=== PATIENT | female | born 1970 | race Caucasian/White ===

== ENCOUNTER 2017-01-04 10:38 | Inpatient (IN) | payer BC ==
[2017-01-04] MEDS ORDERED: ACETAMINOPHEN 325 MG TAB PO ONE (11:21)
[2017-01-04] MEDS ORDERED: NS 1,000 ML IV ONE (12:12)
[2017-01-04 12:19] LABS: % IMMATURE GRANULYOCYTES 0.7 % (0.0-1.1); ABSOLUTE IMMATURE GRANULOCYTES 0.19 10^3/uL (0.00-0.10); ADD DIFF? NO; ADD MORPH? NO; ADD SCAN? NO; ATYPICAL LYMPHOCYTE FLAG 0 (0-99); FRAGMENT RBC FLAG 0 (0-99); HEMATOCRIT 49.9 % (38.0-47.0); HEMOGLOBIN 16.7 g/dL (12.6-16.3); LEFT SHIFT FLG 20 (0-99); LIPEMIA HEMOLYSIS FLAG 80 (0-99); MEAN CELL HEMOGLOBIN 29.6 pg (27.9-34.1); MEAN CELL HEMOGLOBIN CONCENTR. 33.5 g/dL (32.4-36.7); MEAN CELL VOLUME 88.3 fL (81.5-99.8); MEAN PLATELET VOLUME 10.4 fL (8.7-11.7); PLATELET CLUMPS FLAG 10 (0-99); PLATELET COUNT 297 10^3/uL (150-400); RED BLOOD CELL COUNT 5.65 10^6/uL (4.18-5.33)
[2017-01-04] MEDS ORDERED: VANCOMYCIN HCL/NORMAL SALINE 250 ML IV ONE (12:24)
--- NOTE | 2017-01-04 12:28 | EDPHY ---
H & P Time Seen by Provider: 01/04/17 12:14 HPI/ROS: CHIEF COMPLAINT: Fever, infected pain pump HISTORY OF PRESENT ILLNESS: The patient is a 45-year-old female with history of chronic pain requiring pain pump. She had a pain pump for 3 years but it became infected and was removed in 03/08. She continued to have pain in on she had a new pain pump placed by Dr. Lopez. Since that time she has had issues with it leaking cerebral spinal fluid. She has had 2 blood patches and is scheduled for another blood patch on Thursday. She states she has significant amount of drainage from the lumbar site. She is placing a tampon to collect fluid. She has had ongoing intermittent headaches. She describes photophobia since the pump was placed. This morning she had a temperature to 102 and presented to the emergency department. She states that her abdominal present were site is nontender and nonpainful. She denies nausea vomiting. No rash. No weakness or numbness. No neck stiffness. REVIEW OF SYSTEMS: My complete review of systems is negative except as mentioned in the HPI. Past Medical/Surgical History: Includes hypertension, diabetes, hip replacement, spinal stimulator and pain pump, bacterial meningitis Social History: Negative Smoking Status: Never smoked Physical Exam: Vitals noted GENERAL: No acute distress, alert. HEENT: Eyes normal to inspection, normal pharynx, no signs of dehydration. NECK: No thyromegaly, no lymphadenopathy, supple. No meningismus. RESPIRATORY: Clear to auscultation bilaterally, no rales, rhonchi or wheezing. CVS: Regular rate and rhythm, no rubs, murmurs, or gallops. ABDOMEN: Soft, nontender, nondistended, no organomegaly. Benign. Surgical incision site clean dry and intact. No surrounding discomfort. BACK: Normal to inspection, no CVA tenderness. Patient has a lumbar incision with dressing placed. This have clear discharge. No surrounding erythema. The wound is not dehisced. SKIN: Normal color, no rash, warm, dry. No pallor. EXTREMITIES: No pedal edema, no calf tenderness, no Homans sign or cords, no joint swelling. NEURO/PSYCH: Alert and oriented x3, normal mood and affect, normal motor sensory exam. No obvious cranial nerve deficit. Constitutional: Initial Vital Signs Temperature (C) 37.3 C 01/04/17 10:45 Heart Rate 133 H 01/04/17 10:45 Respiratory Rate 24 H 01/04/17 10:45 Blood Pressure 118/83 H 01/04/17 10:45 O2 Sat (%) 92 01/04/17 10:45 O2 Delivery Mode Room Air Allergies/Adverse Reactions: doxycycline Allergy (Verified 01/04/17 10:42) fentanyl Allergy (Verified 01/04/17 14:46) pregabalin [From Lyrica] Allergy (Verified 01/04/17 10:42) Home Medications: Medication Instructions Recorded Atorvastatin Calcium [Lipitor 40 40 mg PO HS 03/19/16 mg (*)] Canagliflozin [Invokana] 300 mg PO DAILY 03/19/16 Lisinopril/Hctz 20/12.5MG 1 ea PO DAILY 03/19/16 [Zestoretic/Prinzide 20/12.5MG (*)] Meloxicam [Mobic 15 mg] 15 mg PO HS 03/19/16 Ondansetron Odt [Zofran Odt 4 mg 4 mg PO HS 03/19/16 (*)] sitaGLIPtin PHOSPHATE [Januvia 100 100 mg PO DAILY 03/19/16 MG (*)] Methocarbamol [Robaxin 750 mg (*)] 750 mg PO QID PRN #60 tab 03/23/16 Acet/Caffeine/Buta Fioricet 1 each PO TID PRN 01/04/17 [Fioricet (*)] Cholecalciferol Vit D3 [Vitamin D3 2,000 units PO DAILY 01/04/17 2000 units tab (OTC)] Nortriptyline HCl [Pamelor 25 mg 25 mg PO HS 01/04/17 (*)] Pain Pump 1 ea IT CONT 01/04/17 Psyllium Husk (with Sugar) 1 each PO BID 01/04/17 [Metamucil Packet] Medical Decision Making - Diagnostics EKG Interpretation: Sinus tachycardia 117. Has nonspecific intraventricular conduction delay. Minimal ST depression. Imaging Results: Imaging Impressions Chest X-Ray 01/04/17 12:10 Impression: Hypoventilatory features with mild peribronchial thickening, but no focal alveolar consolidation. Lumbar Puncture 01/04/17 13:00 Impression: Fluoroscopy-guided lumbar puncture performed at L3-L4, yielding 16 mL of slightly yellowish, but translucent CSF. Sent for requested labs. ED Course/Re-evaluation: In the emergency department I discussed possible etiologies with the patient. I answered all her questions. When the patient arrived I was caring for a full trauma activation the required resuscitation and there was some delay in my initial evaluation. I paged numerous consultations to help with this patient's treatment plan and evaluation. I paged Dr. Lopez, Dr. Bar from Neurosurgery, interventional Radiology, general Radiology, Dr. Day and infectious disease. Laboratory studies, EKG, chest x-ray, blood cultures, wound swab of were sent. Patient's white count came back 1st and was noted to be markedly elevated at greater than 20,000. Because this patient was given Rocephin 1 g IV and vancomycin 1 g IV. Cultures are pending. I discussed the case with Dr. Lopez. He recommended consultation with Infectious Disease and Neurosurgery I discussed the case with Dr. Farah from neurosurgery. He recommended treatment for possible meningitis. He recommended Radiology for LP. I discussed case with Dr. bIarra from General Radiology. He recommended I page interventional Radiology. Dr. Ball was paged. I discussed the case with Dr. Ball. I discussed concern for fluid drainage from her pump site as well as the possibility of meningitis and sepsis. She will come to the emergency department to perform an LP. I discussed the case with Dr. Feldman from Infectious Disease. Specifically I discussed the patient's presentation with tachycardia, elevated white count and lactic acid of 2. Because of this I feel we could not delay in starting antibiotics although we do not have LP results. She agreed. Summarize the discussion with numerous consultations, the patient will be started on antibiotics at this time. Wound culture and blood cultures are pending. The patient will undergo interventional Radiology to obtain cerebral spinal fluid. Hospitalist service will admit the patient. Severe sepsis was declared. The patient was given normal saline 30 milliliters/ kilogram. Repeat lactic acid will be ordered. The patient is aware the plan. I answered all her questions. Rechecked the patient on numerous occasions. She was stable throughout her stay. Patient was taken to IR for LP. I discussed the need for repeat lactate with nursing. 1435: I discussed the plan with the patient and her friend. She returned from IR. She still has mild headache and back discomfort. She is given Dilaudid 0.5 mg IV. Patient informs me that she has an older spinal stimulator in place. This cannot tolerate MRI imaging. CT of the abdomen and pelvis with IV contrast was ordered. Differential Diagnosis: My differential includes but is not limited to bacteremia, sepsis, meningitis, pain pump infection, cellulitis, abscess, epidural abscess Critical Care Time: Patient required 40 minutes of critical care time. This was exclusive of any unbundled procedure. This was due to the time spent with the patient, answering questions, re-evaluation, numerous consultations with specialists including Infectious Disease, neuro surgery, interventional Radiology, radiology , and Internal Medicine. - Data Points Laboratory Results: Laboratory Results 01/04/17 11:00 01/04/17 11:00 01/04/17 01/04/17 01/04/17 13:00 12:20 11:00 WBC RBC Hgb Hct MCV MCH MCHC RDW Plt Count MPV Neut % (Auto) Lymph % (Auto) [place] % (Auto) Eos % (Auto) Baso % (Auto) Nucleat RBC Rel Count Absolute Neuts (auto) Absolute Lymphs (auto) Absolute Monos (auto) Absolute Eos (auto) Absolute Basos (auto) Absolute Nucleated RBC Immature Gran % Immature Gran # PT INR APTT VBG Lactic Acid 2.0 mmol/L mmol/L (0.7-2.1) Sodium 135 mEq/L mEq/L (134-144) Potassium 3.5 mEq/L mEq/L (3.5-5.2) Chloride 100 mEq/L mEq/L (97-110) Carbon Dioxide 20 mEq/l L mEq/l (22-31) Anion Gap 15 mEq/L mEq/L (8-16) BUN 22 mg/dL mg/dL (7-23) Creatinine 0.9 mg/dL mg/dL (0.6-1.0) Estimated GFR > 60 Glucose 145 mg/dL H mg/dL (70-100) Calcium 9.8 mg/dL mg/dL (8.5-10.4) Total Bilirubin 0.9 mg/dL mg/dL (0.1-1.4) Urine Color PALE YELLOW Urine Appearance CLEAR Urine pH 5.0 (5.0-7.5) Ur Specific [place] 1.014 (1.002-1.030) Urine Protein NEGATIVE (NEGATIVE) Urine Ketones NEGATIVE (NEGATIVE) Urine Blood NEGATIVE (NEGATIVE) Urine Nitrate NEGATIVE (NEGATIVE) Urine Bilirubin NEGATIVE (NEGATIVE) Urine Urobilinogen NEGATIVE EU EU (0.2-1.0) Ur Leukocyte Esterase NEGATIVE (NEGATIVE) Urine RBC 1-3 /hpf /hpf (0-3) Urine WBC 1-3 /hpf /hpf (0-3) Ur Epithelial Cells TRACE /lpf /lpf (NONE-1+) Urine Bacteria TRACE /hpf H /hpf (NONE SEEN) Urine Glucose 3+ H (NEGATIVE) 01/04/17 01/04/17 11:00 11:00 WBC 26.49 10^3/uL H 10^3/uL (3.80-9.50) RBC 5.65 10^6/uL H 10^6/uL (4.18-5.33) Hgb 16.7 g/dL H g/dL (12.6-16.3) Hct 49.9 % H % (38.0-47.0) MCV 88.3 fL fL (81.5-99.8) MCH 29.6 pg pg (27.9-34.1) MCHC 33.5 g/dL g/dL (32.4-36.7) RDW 14.0 % % (11.5-15.2) Plt Count 297 10^3/uL 10^3/uL (150-400) MPV 10.4 fL fL (8.7-11.7) Neut % (Auto) 88.8 % H % (39.3-74.2) Lymph % (Auto) 3.0 % L % (15.0-45.0) [place] % (Auto) 7.2 % % (4.5-13.0) Eos % (Auto) 0.0 % L % (0.6-7.6) Baso % (Auto) 0.3 % % (0.3-1.7) Nucleat RBC Rel Count 0.0 % % (0.0-0.2) Absolute Neuts (auto) 23.50 10^3/uL H 10^3/uL (1.70-6.50) Absolute Lymphs (auto) 0.80 10^3/uL L 10^3/uL (1.00-3.00) Absolute Monos (auto) 1.92 10^3/uL H 10^3/uL (0.30-0.80) Absolute Eos (auto) 0.01 10^3/uL L 10^3/uL (0.03-0.40) Absolute Basos (auto) 0.07 10^3/uL 10^3/uL (0.02-0.10) Absolute Nucleated RBC 0.00 10^3/uL 10^3/uL (0-0.01) Immature Gran % 0.7 % % (0.0-1.1) Immature Gran # 0.19 10^3/uL H 10^3/uL (0.00-0.10) PT 13.1 SEC SEC (12.0-15.0) INR 1.00 (0.83-1.16) APTT 29.1 SEC SEC (23.0-38.0) VBG Lactic Acid Sodium Potassium Chloride Carbon Dioxide Anion Gap BUN Creatinine Estimated GFR Glucose Calcium Total Bilirubin Urine Color Urine Appearance Urine pH Ur Specific [place] Urine Protein Urine Ketones Urine Blood Urine Nitrate Urine Bilirubin Urine Urobilinogen Ur Leukocyte Esterase Urine RBC Urine WBC Ur Epithelial Cells Urine Bacteria Urine Glucose Medications Given: Discontinued Medications Acetaminophen (Tylenol) 650 mg PO EDNOW ONE Stop: 01/04/17 11:22 Last Admin: 01/04/17 11:30 Dose: 650 mg Sodium Chloride (Ns) 1,000 mls @ 0 mls/hr IV ONCE ONE PRN Reason: Wide Open Stop: 01/04/17 12:13 Last Admin: 01/04/17 11:45 Dose: 1,000 mls Vancomycin/Sodium Chloride (Vancomycin 1 Gm (Premix)) 250 mls @ 250 mls/hr IV EDNOW ONE PRN Reason: Protocol Stop: 01/04/17 13:23 Last Admin: 01/04/17 12:46 Dose: 250 mls Sodium Chloride (Ns) 3,300 mls @ 6,600 mls/hr 30 ml/kg infuse over 30 min ( 3300 ml) IV EDNOW ONE Stop: 01/04/17 13:37 Last Admin: 01/04/17 13:15 Dose: 3,300 mls Departure - Departure Disposition: [facility] Inpatient Acute Clinical Impression: Leukocytosis, Possible meningitis, Severe sepsis Back pain Qualifiers: Back pain location: low back pain Chronicity: acute Back pain laterality: midline Sciatica presence: without sciatica Qualified Code(s): M54.5 - Low back pain Fever Qualifiers: Fever type: due to other condition Qualified Code(s): R50.81 - Fever presenting with conditions classified elsewhere Condition: Good
[2017-01-04 12:30] LABS: APTT 29.1 SEC (23.0-38.0); PROTIME(PATIENT) 13.1 SEC (12.0-15.0)
--- NOTE | 2017-01-04 12:35 | CPEKG ---
Heart Rate: 117 RR Interval: 513 P-R Interval: 152 QRSD Interval: 120 QT Interval: 294 QTC Interval: 410 P Shiner: 51 QRS Shiner: 86 EKG Severity - ABNORMAL ECG - EKG Impression: SINUS TACHYCARDIA EKG Impression: NONSPECIFIC INTRAVENTRICULAR CONDUCTION DELAY EKG Impression: MINIMAL ST DEPRESSION, INFERIOR LEADS Electronically Signed By: Zahraa Henson 04-Jan-2017 15:22:39
[2017-01-04 12:47] LABS: ANION GAP 15 mEq/L (8-16); BILIRUBIN,TOTAL 0.9 mg/dL (0.1-1.4); CALCIUM 9.8 mg/dL (8.5-10.4); CARBON DIOXIDE 20 mEq/l (22-31); CHLORIDE 100 mEq/L (97-110); CREATININE 0.9 mg/dL (0.6-1.0); GLOMERULAR FILTRATION RATE > 60; GLUCOSE 145 mg/dL (70-100); POTASSIUM 3.5 mEq/L (3.5-5.2); SODIUM 135 mEq/L (134-144)
[2017-01-04] MEDS ORDERED: NS 3,300 ML IV ONE (13:08)
[2017-01-04 13:23] LABS: COLOR PALE YELLOW; LEUKOCYTE ESTERASE,URINE NEGATIVE (NEGATIVE); NITRITE,URINE NEGATIVE (NEGATIVE)
[2017-01-04] MEDS ORDERED: NA BICARBONATE 50 MEQ/50 ML VIAL ONE (13:34)
[2017-01-04] MEDS ORDERED: LIDOCAINE 1% 5 ML SDV ONE (13:34)
[2017-01-04] MEDS ORDERED: LIDOCAINE 1% 30 ML SDV ONE (13:35)
[2017-01-04 13:48] LABS: BACTERIA TRACE /hpf (NONE SEEN)
[2017-01-04] MEDS ORDERED: HYDROmorphONE/DILAUDID 1 MG/ML SYR IVP PRN ×2 (13:51→14:40)
[2017-01-04] MEDS ORDERED: NS 1,000 ML IV SCH (14:00)
[2017-01-04] MEDS ORDERED: IOPAMIDOL (ISOVUE-300) 100 ML BTL ONE (14:45)
[2017-01-04] MEDS ORDERED: HYDROmorphONE/DILAUDID 1 MG/ML SYR ONE (14:47)
[2017-01-04 15:27] LABS: PROTEIN, CSF 47 mg/dL (12-60)
[2017-01-04 15:49] LABS: CSF APPEARANCE CLEAR (CLEAR); CSF COLOR COLORLESS (COLORLESS); CSF SUPERNATANT COLORLESS (COLORLESS); WBC, CSF 350 /mm3 (0-5)
--- NOTE | 2017-01-04 17:15 | PDGENHP ---
History and Physical History and Physical: Chief complaint: Fever History of present illness: The patient is a 46-year-old female with a past medical history of lumbar spine pain pump, chronic back pain who presented with fever today. She complains of leaking CSF from the pain pump since it was placed about [address] Lopez, who had attempted 2 blood patches to stop leaking, but was unsuccessful. Prior to placement of current pain pump, she had another pain pump which got infected and had been surgically removed at [facility] in February 2016. Other associated symptoms include fatigue, positional lightheadedness, headache w/ photophobia, back pain which is sharp and radiates down left leg sometimes. Patient denies numbness or tingling or paresthesias. She denies incontinence of bladder and bowel. Symptoms are better when she lies supine. Symptoms are worse when she stands or walks. Past medical history: Diabetes mellitus-on oral medications Chronic back pain, s/p pain pump Hypertension Hyperlipidemia Past surgical history: Spinal pain pump placed 2016 (replacement) - in R abdomen Spinal pain pump placed in 2012 Spinal nerve stimulator placed 2009 L SHANDA Medications: Please see medication reconciliation form Allergies: Doxycycline, fentanyl, pregabalin. Social history: and lives with . She does not smoke drink or do drugs. She is disabled. They moved here from [place] a few years ago. Family history: Her father had diabetes and high blood pressure. Review of systems: 10 point review of systems was conducted and is negative except per HPI Physical exam: General: The patient is an obese, middle-aged female who is alert and in no acute distress. HEENT: normocephalic, extraocular movements intact, conjunctivae clear, no lesions on face. Mucous membranes moist. Neck: trachea midline, no visible masses, no external lesions. CV: +S1/S2, RRR, no MRG. Resp: unlabored, CTAB no RRW. Abd: soft and nondistended. Nontender throughout. Musculoskeletal: Normal muscle tone and bulk. Equal 5/5 strength bilateral hands and feet. Neuro: cranial nerves II XII grossly intact. Intact gross motor and sensory function, symmetric in upper and lower extremities. Psych: appropriate mood/affect. Skin: No pallor. Dressing on low back C/D/I. Heme/lymph: No peripheral edema. Vitals: Reviewed Labs: White blood cell 26.5, hemoglobin 16.7, platelets 297. Sodium 135 potassium 3.5 chloride 100 CO2 20 anion gap 15 BUN 22 creatinine 0.9 glucose 145 calcium 9.8 bilirubin 0.9 INR 1.0 lactic acid 1.7. Urinalysis +3 glucose. Other Data: CT abd/pelv w/ contrast: nodular asymmetry posterior inferior lateral L breast. Hepatomegaly w/ diffuse steatosis. Dorsal epidural neurostimulator. Presumed seroma associated with a portion of the implant device along the lateral right abdominal wall. Status post Ursula type left hip arthroplasty. There is a 3.4 cm simple appearing left ovarian cyst. Impression and plan: Sepsis Suspected meningitis and abscess a/w infected pain pump Chronic pain Diabetes mellitus type 2 Hyperlipidemia Hypertension Obesity Hepatosteatosis L breast nodule -ID consulted - recs appreciated - IV Abx. -NSG consulted - recs appreciated - to stop CSF leaking and possibly to remove infected pain pump. -LP done today - FU fluid studies -IV fluids. -Continue home meds. -Noted abnormal nodular focus in L breast on CT scan, notified patient. She admits she has never had a mammogram. Recommended outpatient workup after dealing w/ pain pump during this hospitalization. -VTE ppx - Lovenox. -Code status - Full. Discussed case with RN, patient and her , and infectious disease specialist.
[2017-01-04] MEDS: CEFEPIME HCL 2 GM in D5W 100 ML IV SCH ×2 (17:55→21:27)
[2017-01-04] MEDS ORDERED: GUAIFENESIN/DM 10 ML UDCUP PO PRN (18:08)
[2017-01-04] MEDS: ONDANSETRON 4 MG/2 ML VIAL IVP PRN (18:45)
[2017-01-04] MEDS: ACETAMINOPHEN 325 MG TAB PO PRN (19:43)
[2017-01-04] MEDS ORDERED: Meloxicam [Mobic 15 Mg] 15 MG PO SCH (21:00)
[2017-01-04] MEDS: NORTRIPTYLINE HCL 25 MG CAP PO SCH (21:26)
[2017-01-04] MEDS: PSYLLIUM METAMUCIL 1 PKT PO SCH (21:26)
[2017-01-04] MEDS: ATORVASTATIN CALCIUM 40 MG TAB PO SCH (21:26)
[2017-01-04] MEDS: ONDANSETRON DISINTEGRATING 4 MG TAB PO PRN (22:31)
[2017-01-04] MEDS: VANCOMYCIN 1.5 GM in D5W 250 ML IV SCH (22:31)
--- NOTE | 2017-01-04 22:57 | GCON ---
[f rep st] CONSULTATION INFECTIOUS DISEASE CONSULTATION DATE OF CONSULTATION: 01/04/2017 REFERRING PHYSICIAN: Joanna Lopez DO REASON FOR CONSULTATION: Fever, CSF leak for further evaluation. CHIEF COMPLAINT: Fevers and headaches. HISTORY OF PRESENT ILLNESS: This is a 46-year-old female with a past medical history sign ificant for chronic low back pain status post an epidural neurostimulator, diabetes, hypertension, d yslipidemia. She has had a neurostimulator pain pump for many years. 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 T he catheter and reservoir were removed at that time, and she was treated with a course of ceftriaxon e for 2 weeks from the end of February till April 03 per the record. She recently had the neurostimu lator replaced on December 08, 2016. She said shortly after its placement, she started to have headach es and low back pain. She states that it was low-grade for the first 2 weeks, and then it became mo re severe over the next 2-3 weeks. She has had CSF leak from her lower back wound for the past 2 we eks status post 2 blood patches, which have been unsuccessful and . Now, she has been ng ving fevers, increasing headaches with photophobia. She denies any neck stiffness. She states over all her symptoms are much less severe than her February 2015 episode. She came in. She has been tachyc ardic and febrile to 38.4. She had a white blood cell count noted to be 26,000 with a left shift. Blood cultures in 2 sets were drawn. She was given a dose of vancomycin in the ER, and then subsequ ently set up for an LP. The LP CSF showed 350 WBCs, 85 RBCs, 95% neutrophils with a normal glucose and protein in the CSF. So far, polys are present, but no organisms on the Gram stain. She also un derwent a CAT scan of the abdomen, which showed a presumed seroma associated with the dorsal epidura l nerve stimulator. I reviewed the images personally with Radiology today, which shows that collect ion around the reservoir, as well as some tracking from the neurostimulator in the lower lumbar spin e tracking out to the skin. Does not appear to have a focal collection there though. She is now in the intensive care unit. Infectious Disease is now consulted for further evaluation and opinion re brissa above. REVIEW OF SYSTEMS: GENERAL: Had fevers. No significant chills. HEAD: Has had headaches. EYES: No change in vision, but definitely is having photophobia. ENT: No sore throat, difficulty swallo wing, ear pain or ear drainage. NECK: No neck stiffness. CARDIOVASCULAR: Denies any chest pain o r palpitations. RESPIRATORY: Denies any shortness of breath, cough, or sputum production. ABDOMEN : No nausea, vomiting, abdominal pain, or diarrhea. She does feel a bit bloated. : No dysuria, hematuria. Does have low back pain. MUSCULOSKELETAL: Denies any joint pains or muscle aches. SK IN: No other rashes. NEURO: Denies any numbness or tingling down the lower extremities. The rest of the 10-point review of systems essentially negative except as above. PAST MEDICAL HISTORY: Significant for dyslipidemia, hypertension, diabetes mellitus, chronic low ba ck pain status post an epidural neurostimulator, previous neurostimulator infection with group B str ep with meningitis back in February 2016, status post removal of the catheter and reservoir at that time . PAST SURGICAL HISTORY: Significant for initial epidural neurostimulator placement in 2012, which wa s subsequently removed in February 2016 and replaced November 2016, left total hip replacement. ALLERGIES: She has doxycycline with a mild rash without shortness of breath without swelling, fenta nyl, pregabalin. MEDICATIONS: See OCT. SOCIAL HISTORY: She lives with her . She does not smoke or drink alcohol. No illicit drugs . FAMILY HISTORY: Father had diabetes and high blood pressure and of pancreatic cancer. PHYSICAL EXAMINATION: VITAL SIGNS: Temperature 37.3, heart rate 112, blood pressure 104/69, satura tions are 95% on 2 L O2 via nasal cannula, respiratory rate is 18. GENERAL: Patient is in the inte nsive care unit lying down flat. There is photophobia. Awake and alert and oriented x3. HEENT: H ead normocephalic, atraumatic. Eyes, pupils equal, round, react to light. There is no conjunctival petechiae noted. She does have photophobia. Oropharynx is clear. There is no posterior erythema or thrush. NECK: Not examined as she just recently had a lumbar puncture. CARDIOVASCULAR: S1, S2 . Irregular rhythm. She is tachycardic. RESPIRATORY: Clear to auscultate bilaterally. No rhonch i appreciated. ABDOMEN: Positive bowel sounds in all quadrants. Soft, nontender, nondistended. N o obvious organomegaly appreciated. No pain on the reservoir pump in the abdomen. EXTREMITIES: No obvious joint effusions. No muscle aches or pain on palpation. No lower extremity edema. SKIN: Pertinent finding, she has a lower lumbar back wound, which has opened up in a linear fashion. Mini mal slough overlying it with CSF drainage coming out of it. There is no surrounding erythema noted. LABS: White blood cell count is 26.4, hemoglobin 16.7, platelets are 297, neutrophil count is 88%. INR is 1. Venous lactic acid is 2. Sodium 135, potassium 3.5, chloride 100, bicarb 20, BUN is 22, creatinine 0.9. Glucose 140. Urinalysis negative nitrite, negative leuk esterase, urine WBCs 1-3. CSF WBCs 350, CSF RBCs 85, CSF neutrophils 95%, CSF glucose 73, CSF total protein 47. Microbiolog y: CSF Gram stain with polys and mononuclear cells, no organisms seen. Culture is pending. Blood cultures are pending. Urine culture pending. IMAGING: Have all been reviewed by me and are stated above. She had a chest x-ray done, which show ed hypoventilatory changes, but no consolidation. ASSESSMENT: 1. Sepsis. 2. Likely infected pain pump with meningitis. PLAN: Will start vancomycin and cefepime empirically while cultures are in progress. Blood culture s have been collected and are pending. CSF cultures are also pending. Reviewed imaging results wit h Radiology today. She does have a small collection near her reservoir in the abdomen. Depending o n what her cultures show, will see if samples need to be collected from this. If her CSF is positiv e, she will likely need removal of her catheter and reservoir to help with management of an infectio n. The above plan was explained to the patient. Care was coordinated with the ER earlier today, as well as the hospitalist team in the ICU. Thank you very much for the opportunity to care for your patient in consultation. /[id number]/MODL
[2017-01-05] MEDS: Meloxicam [Mobic] 15 MG PO SCH ×2 (01:40→21:56)
[2017-01-05 05:36] LABS: % IMMATURE GRANULYOCYTES 0.8 % (0.0-1.1); ABSOLUTE IMMATURE GRANULOCYTES 0.15 10^3/uL (0.00-0.10); ADD DIFF? NO; ADD MORPH? NO; ADD SCAN? NO; ATYPICAL LYMPHOCYTE FLAG 0 (0-99); FRAGMENT RBC FLAG 0 (0-99); HEMATOCRIT 35.2 % (38.0-47.0); HEMOGLOBIN 11.6 g/dL (12.6-16.3); LEFT SHIFT FLG 30 (0-99); LIPEMIA HEMOLYSIS FLAG 80 (0-99); MEAN CELL HEMOGLOBIN 29.8 pg (27.9-34.1); MEAN CELL VOLUME 90.5 fL (81.5-99.8); MEAN PLATELET VOLUME 9.8 fL (8.7-11.7); PLATELET CLUMPS FLAG 0 (0-99); PLATELET COUNT 185 10^3/uL (150-400); RED BLOOD CELL COUNT 3.89 10^6/uL (4.18-5.33); RED CELL DISTRIBUTION WIDTH 14.2 % (11.5-15.2)
[2017-01-05 05:48] LABS: ANION GAP 8 mEq/L (8-16); CALCIUM 7.8 mg/dL (8.5-10.4); CARBON DIOXIDE 22 mEq/l (22-31); CHLORIDE 107 mEq/L (97-110); CREATININE 0.7 mg/dL (0.6-1.0); GLOMERULAR FILTRATION RATE > 60; GLUCOSE 91 mg/dL (70-100); MAGNESIUM 1.8 mg/dL (1.6-2.3); SODIUM 137 mEq/L (134-144)
[2017-01-05] MEDS: CEFEPIME HCL 2 GM in D5W 100 ML IV SCH ×3 (05:52→21:57)
[2017-01-05] MEDS: ACETAMINOPHEN 325 MG TAB PO PRN ×2 (08:06→14:53)
[2017-01-05] MEDS: LISINOPRIL/HCTZ 20/12.5MG 1 EA TAB PO SCH (08:07)
[2017-01-05] MEDS: PSYLLIUM METAMUCIL 1 PKT PO SCH ×2 (08:09→21:56)
[2017-01-05] MEDS: CHOLECALCIFEROL VIT D3 2,000 UNITS TAB/CAP PO SCH (08:09)
[2017-01-05] MEDS ORDERED: POTASSIUM Cl (KCl) 100 ML IV SCH (08:30)
--- NOTE | 2017-01-05 08:45 | HOSPPROG ---
Hospitalist Progress Note Assessment/Plan: #Sepsis: 2/2 #Meningitis and infected neurostimulator -empiric Vanc/Cefepime. Appreciate ID consultation. Awaiting CSF and blood cultures -NSGY to evaluate for CSF leak #Leukocytosis: trending down. Due to above #Controlled DM: Januvia #Normocytic anemia: no acute blood loss #Benign HTN: cont home meds #HLD: statin #Left breast lump: mammogram as outpatient #Headache: due to leak. She states caffeine helpful #Hypokalemia: replete #Diet: diabetic #DVT ppx: ambulatory Subjective: mild CARR[place]CO now Objective: Vital Signs Temp Pulse Resp BP Pulse Ox 36.8 C 85 13 116/68 100 01/05/17 07:14 01/05/17 07:14 01/05/17 07:14 01/05/17 07:14 01/05/17 07:14 Microbiology 01/04/17 14:20 Gram Stain - Final Cerebral Spinal Fluid Laboratory Results 01/05/17 05:00 01/05/17 05:00 01/04/17 01/05/17 01/06/17 05:59 05:59 05:59 Intake Total 5585 Output Total 4150 550 Balance 1435 -550 PT 13.1 SEC (12.0-15.0) 01/04/17 11:00 INR 1.00 (0.83-1.16) 01/04/17 11:00 - Physical Exam Constitutional: no apparent distress, obese Eyes: PERRL Ears, Nose, Mouth, Throat: moist mucous membranes, hearing normal Cardiovascular: regular rate and rhythym, no murmur, rub, or gallop Respiratory: no respiratory distress, no rales or rhonchi Gastrointestinal: normoactive bowel sounds, soft, non-tender abdomen, other ( palpable resovoir RLQ, no TTP or redness.) Genitourinary: no bladder fullness, no bladder tenderness Musculoskeletal: full muscle strength, other (spinal incision small fistula. Gauze saturated with CSF fluid) Neurologic: AAOx3, CN II-XII Intact Psychiatric: interacting appropriately ICD10 Worksheet Patient Problems: Problems Problem Status Onset Back pain Acute Fever Acute Leukocytosis Acute Severe sepsis Acute Fever Acute Headache Acute
[2017-01-05] MEDS ORDERED: Canagliflozin [Invokana] 300 MG PO SCH (09:00)
[2017-01-05] MEDS ORDERED: ENOXAPARIN 40 MG/0.4 ML SYR SC SCH (09:00)
[2017-01-05] MEDS ORDERED: POTASSIUM CL 20 MEQ TAB PO ONE (09:44)
[2017-01-05] MEDS: VANCOMYCIN 1.5 GM in D5W 250 ML IV SCH ×2 (10:02→23:11)
--- NOTE | 2017-01-05 10:10 | WOCRNPDOC ---
WOMARIAMN Advanced Assessment Note - Skin Integrity Problem, Advanced Assess Lower Back Dressing Type: Gauze, Tegaderm Film Dressing Description: Intact, Saturated Exudate Color: Clear, Yellow Integumentary Issue Intervention: Visualized Under Dressing Janett Wound Tissue: Erythema Janett Wound Swelling: None Wound Bed Color: Red, Yellow Wound Bed Constitution: Granulation Tissue, Smooth Tissue, Tunneling (Proximal wound tunnels at least 1 cm around 10 oclock. Did not feel comfortable probing past that point), Adhered Slough Wound Edges: Not Attached, Well Defined Site Odor: Moderate, Musky Site Measurement - Head-to-Toe Length X Width X Depth (cm): 3x0.5x0.6 Skin Integrity Problem Comment: Area assessed while patient was sitting at the bedside. Wound has a superior and inferior opening, the inferior being the larger of the two. The superior wound bed is not discrete and extends ventrally. The inferior wound does not and a firm wound bed is palpable. Report given to RN Narda. Due to location of wound and unknown depth a surgical consultation is requested. Wound care will check in again 01/08.
--- NOTE | 2017-01-05 11:44 | GCON ---
[f rep st] CONSULTATION NEUROSURGICAL CONSULTATION CHIEF COMPLAINT: Incisional leakage. 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 Approximately 1 month ago she had an intrathecal pump placed by Dr. Lopez. She had noticed some positional heada ches postoperatively and she had 2 attempts at a blood patch that were unsuccessful. She presented to [facility] on 01/04/2017 with fevers and leakage from her incision. This include d fatigue, lightheadedness, photophobia and back pain. A lumbar puncture was obtained which showed 380 white blood cells in the spinal fluid. She was started on antibiotics and an infectious disease consultation was obtained. A neurosurgical consultation was also requested. She currently complai ns of ongoing low back pain and pain in her left leg. She notices that her headaches are worse if s he sits up or tries to stand. She has had some lightheadedness, fevers, and fatigue. PAST MEDICAL HISTORY: 1. Diabetes mellitus. 2. Chronic pain. 3. Hypertension. 4. Hyperlipidemia. MEDICATIONS: Prior to admission are Fioricet, Zofran, Lipitor, Invokana, vitamin D, lisinopril, hyd rochlorothiazide, meloxicam, Robaxin, nortriptyline, psyllium husk, and Januvia. ALLERGIES: Doxycycline, fentanyl, and Lyrica. FAMILY HISTORY: Patient has no family history of infected pain pumps. SOCIAL HISTORY: Patient is with a grown son. She denies smoking, drinking, or drug use. REVIEW OF SYSTEMS: Negative. PHYSICAL EXAM: GENERAL: Patient is a 46-year-old female lying in bed, in a mild amount of distress . HEAD, EYES, EARS, NOSE, AND THROAT: Negative for drainage. EXTREMITIES: [place], warm, and dry. NEUROLOGICAL: Patient is awake, alert, oriented x4. Pupils equal, round, reactive to light. Extra ocular motions are intact. There is no evidence of facial droop. Tongue and uvula are midline. Sp inal accessory muscles are intact. Her motor strength is 5/5 in all muscle groups of her upper and lower extremities bilaterally. Sensation is grossly intact to light touch with both upper and lower extremities bilaterally. Deep tendon reflexes are 1+ out of 4 in the bilateral biceps, triceps, br achioradialis, patellar, and Achilles. There is a negative Lanie's with no clonus. Her lumbar i ncision shows some separation with drainage of clear fluid. There is mild erythema. LABORATORY DATA: Recent white blood cell count on admission was 26.4; today it is 18.85. CSF sampl e on 01/04/2017 shows a white blood cell count of 350, red blood cell count of 85, 95 neutrophils, 7 3 glucose, and protein of 47. IMPRESSION: This is a 46-year-old female who is approximately 1 month out from intrathecal pain pum p placement by Dr. Lopez. She is readmitted with leakage of clear fluid from her incision and sympt oms consistent with meningitis. PLAN: All the above were discussed in detail with the patient. This patient was seen and examined by Dr. Eleuterio Moran in ICU room 241. At this point in time, we would like her to continue with the IV antibiotics and she is currently on vancomycin and Rocephin. Her spinal CSF cultures are still pen ding; however, she would likely require removal of her intrathecal pain pump followed by completion of her course of IV antibiotics. Upon completion of her IV antibiotics, then she could consider rep lacement of her pain pump, if warranted. At this point in time, we will make her n.p.o. after dandy pruitt for consideration of removal of her intrathecal pain pump tomorrow by Dr. Hobbs. /[id number]/MODL
--- NOTE | 2017-01-05 15:34 | PCMIDPN ---
Assessment/Plan: Assessment/Plan: * Meningitis with CSF leak status post intrathecal pain pump placement: CSF cultures no growth to date but has significant pleocytosis consistent with meningitis. Agree with plans for intrathecal pain pump removal and closure of CSF leak if feasible. Continue empiric vancomycin and cefepime. Findings and plan reviewed with neurosurgical team. 01/05/17 15:30 Subjective: Patient with persistent positional headache and leakage of clear fluid from back incision. Objective: Vital Signs Temp Pulse Resp BP Pulse Ox 36.8 C 88 14 107/64 90 L 01/05/17 11:52 01/05/17 11:52 01/05/17 11:52 01/05/17 11:52 01/05/17 09:25 Microbiology 01/05/17 05:00 Gram Stain - Final Back - Eswab 01/04/17 14:20 Gram Stain - Final Cerebral Spinal Fluid Laboratory Results 01/05/17 05:00 01/05/17 05:00 01/04/17 01/05/17 01/06/17 05:59 05:59 05:59 Intake Total 5585 Output Total 4150 550 Balance 1435 -550 Vancomycin # 2 Cefepime # 1 CSF cultures no growth to date Blood cultures x2 no growth Laboratory Tests 01/04/17 14:20 CSF WBC 350 H CSF RBC 85 H CSF Neutrophils % 95 H CSF Glucose 73 CSF Total Protein 47 - Physical Exam General Appearance: alert, no apparent distress EENT: No scleral icterus, No conjunctival petechiae Respiratory: lungs clear, No respiratory distress Neck: No meningismus Cardiac/Chest: regular rate, rhythm Abdomen: non-tender, other ( well-healed incision along right lower quadrant) Back: other ( approximately 1 cm open area in mid incision with drainage of clear fluid consistent with CSF) ICD10 Worksheet Patient Problems: Problems Problem Status Onset Back pain Acute Fever Acute Leukocytosis Acute Severe sepsis Acute Fever Acute Headache Acute
[2017-01-05] MEDS ORDERED: NS W/ 20 KCl/L 1,000 ML IV SCH (18:15)
[2017-01-05] MEDS: NORTRIPTYLINE HCL 25 MG CAP PO SCH (21:55)
[2017-01-05] MEDS: ATORVASTATIN CALCIUM 40 MG TAB PO SCH (21:55)
[2017-01-05] MEDS ORDERED: MAGNESIUM HYDROXIDE 30 ML UDCUP PO PRN (22:13)
[2017-01-05] MEDS ORDERED: POLYETHYLENE GLYCOL 3350 17 GM PKT PO PRN (22:13)
[2017-01-05] MEDS ORDERED: BISACODYL 10 MG SUPP PR PRN (22:13)
[2017-01-05] MEDS ORDERED: LACTULOSE 20 GM/30 ML UDCUP PO PRN (22:13)
[2017-01-05] MEDS: OXYCODONE/APAP 5/325 TAB PO PRN (22:27)
[2017-01-05] MEDS: SENNOSIDES/DOCUSATE SODIUM TAB PO SCH (22:32)
[2017-01-06] MEDS ORDERED: POTASSIUM Cl (KCl) 40 MEQ in NS 1,000 ML IV SCH
[2017-01-06] MEDS: NS W/ 20 KCl/L 1,000 ML IV SCH (02:36)
[2017-01-06] MEDS: ACETAMINOPHEN 325 MG TAB PO PRN (04:13)
[2017-01-06] MEDS: CEFEPIME HCL 2 GM in D5W 100 ML IV SCH (05:28)
[2017-01-06 06:27] LABS: HEMATOCRIT 42.7 % (38.0-47.0); MEAN CELL HEMOGLOBIN 29.1 pg (27.9-34.1); MEAN CELL HEMOGLOBIN CONCENTR. 32.8 g/dL (32.4-36.7); MEAN CELL VOLUME 88.8 fL (81.5-99.8); RED BLOOD CELL COUNT 4.81 10^6/uL (4.18-5.33)
[2017-01-06] MEDS ORDERED: BUPIVACAINE/EPI 0.25% 30 ML SDV ONE ×2 (06:43→09:24)
[2017-01-06] MEDS ORDERED: BACITRACIN 50,000 UNITS/10 ML SYR IRR ONE ×4 (06:44→13:54)
[2017-01-06] MEDS ORDERED: LIDOCAINE 1% 2 ML INJ ONE (07:04)
[2017-01-06 07:13] LABS: ANION GAP 12 mEq/L (8-16); CALCIUM 9.1 mg/dL (8.5-10.4); CARBON DIOXIDE 23 mEq/l (22-31); CHLORIDE 104 mEq/L (97-110); CREATININE 0.8 mg/dL (0.6-1.0); GLOMERULAR FILTRATION RATE > 60; GLUCOSE 112 mg/dL (70-100); POTASSIUM 3.8 mEq/L (3.5-5.2); SODIUM 139 mEq/L (134-144)
[2017-01-06] MEDS ORDERED: MIDAZOLAM 2 MG/2 ML VIAL ONE (07:14)
[2017-01-06] MEDS ORDERED: fentaNYL 100 MCG/2 ML INJ ONE ×4 (07:21→16:06)
[2017-01-06] MEDS ORDERED: REMIFENTANIL HCL 1 MG VIAL ONE ×2 (07:21→13:36)
[2017-01-06] MEDS ORDERED: PROPOFOL/EMULSION 500 MG/50 ML BOTTLE IV ONE ×2 (07:21→13:36)
[2017-01-06] MEDS ORDERED: ONDANSETRON 4 MG/2 ML VIAL ONE (07:24)
[2017-01-06] MEDS ORDERED: DEXAMETHASONE 4 MG/ML VIAL ONE ×2 (07:24→12:09)
--- NOTE | 2017-01-06 08:31 | PCMIDPN ---
Assessment/Plan: Assessment/Plan: 1. 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 Was only given Vanco in ER prior to LP. -will d/c cefepime, vanco and change to Nafcillin for directive therapy for above -For removal of pain pump/reservoir today which will help fascilitate response to therapy. -Will need at least 2 weeks therapy from time of removal of device barring any new issues. -check baseline LFT today prior to first dose of Nafcillin. Creatinine 0.8. -back wound cx with no organism on GS, blood cx ngtd - WBC elevated but fluctuating. -Recheck labs in am. -plan of care reviewed in detail with patient, at bedside. MEds vanco 01/04-01/06 cefepime 01/04-01/06 Subjective: Remains in SDU. TEmps improved. Headache better. Still with photophobia. Today with more back pain. denies n/t of lower extremities. Denies sob, abd pain. slightly constipated. Continues to drain out copious material through back wound. Objective: Vital Signs Temp Pulse Resp BP Pulse Ox 36.8 C 88 16 122/63 H 100 01/06/17 04:00 01/06/17 04:00 01/06/17 04:00 01/06/17 04:00 01/06/17 04:00 Microbiology 01/04/17 14:20 Gram Stain - Final Cerebral Spinal Fluid 01/05/17 05:00 Gram Stain - Final Back - Eswab Laboratory Results 01/06/17 06:17 01/06/17 06:17 01/05/17 01/06/17 01/07/17 05:59 05:59 05:59 Intake Total 5585 1752 Output Total 8570 7340 Balance 1435 -2998 - Physical Exam General Appearance: alert, no apparent distress EENT: other (no conjunctival injection. ) Respiratory: lungs clear Cardiac/Chest: regular rate, rhythm Extremities: No swelling Abdomen: normal bowel sounds, non-tender, soft, No distended Back: other (back wound: copious serous drainage. minimal slough within wound. ) Skin: No erythema ICD10 Worksheet Patient Problems: Problems Problem Status Onset Back pain Acute Fever Acute Leukocytosis Acute Severe sepsis Acute Fever Acute Headache Acute
[2017-01-06] MEDS ORDERED: ALTEPLASE 2 MG VIAL IVP PRN (08:45)
[2017-01-06] MEDS ORDERED: Canagliflozin [Invokana] 300 MG PO SCH (09:00)
[2017-01-06] MEDS: NAFCILLIN SODIUM 2 GM in D5W 100 ML IV SCH ×3 (10:08→21:08)
[2017-01-06 10:44] LABS: BILIRUBIN,TOTAL 0.7 mg/dL (0.1-1.4); BILIRUBIN-CONJUGATED 0.5 mg/dL (0.0-0.5); BILIRUBIN-UNCONJUGATED 0.2 mg/dL (0.0-1.1); TOTAL PROTEIN 5.7 g/dL (6.3-8.2)
--- NOTE | 2017-01-06 10:54 | HOSPPROG ---
Hospitalist Progress Note Assessment/Plan: #Sepsis: 2/ #MSSA Meningitis and infected neurostimulator -empiric Vanc/Cefepime. Change to Nafcillin for 2 weeks from pump removal. Check LFTs -NSGY removed pump today. Must lay flat, no Trendelburg for 5 days. #Leukocytosis: due to above. #Acute on chronic back pain: her pain doc, Dr. Lopez, was contacted and rec PO dilaudid and Klonopin. PRN IV dilaudid for breakthrough -I discussed with pt about other treatments for neuropathic pain: she has had severe reactions to Lyrica and Gabapentin #Controlled DM: Januvia #Normocytic anemia: no acute blood loss #Benign HTN: cont home meds #HLD: statin #Left breast lump: mammogram as outpatient #Headache: due to leak. She states caffeine helpful #Hypokalemia: replete #Diet: diabetic #DVT ppx: ambulatory Subjective: intrathecal pain pump removed. Severe pain after procedure Objective: Vital Signs Temp Pulse Resp BP Pulse Ox 36.8 C 88 16 122/63 H 100 01/06/17 04:00 01/06/17 04:00 01/06/17 04:00 01/06/17 04:00 01/06/17 04:00 Microbiology 01/05/17 05:00 Gram Stain - Final Back - Eswab 01/04/17 14:20 Gram Stain - Final Cerebral Spinal Fluid Laboratory Results 01/06/17 06:17 01/06/17 06:17 01/05/17 01/06/17 01/07/17 05:59 05:59 05:59 Intake Total 5585 1752 Output Total 4150 4750 Balance 1435 -2998 PT 13.1 SEC (12.0-15.0) 01/04/17 11:00 INR 1.00 (0.83-1.16) 01/04/17 11:00 - Physical Exam Constitutional: obese, other (tearful) Ears, Nose, Mouth, Throat: moist mucous membranes, hearing normal Cardiovascular: regular rate and rhythym, no murmur, rub, or gallop Respiratory: no respiratory distress, no rales or rhonchi Gastrointestinal: normoactive bowel sounds, soft, non-tender abdomen Genitourinary: no bladder fullness Skin: warm Musculoskeletal: full muscle strength, other (lumbar spinal incision with CSF leak. PICC line in place) Neurologic: AAOx3, CN II-XII Intact Psychiatric: interacting appropriately ICD10 Worksheet Patient Problems: Problems Problem Status Onset Back pain Acute Fever Acute Leukocytosis Acute Severe sepsis Acute Fever Acute Headache Acute
[2017-01-06] MEDS ORDERED: LIDOCAINE 2% 100 MG/5 ML SYR ONE (12:09)
[2017-01-06] MEDS: CHOLECALCIFEROL VIT D3 2,000 UNITS TAB/CAP PO SCH (12:30)
[2017-01-06] MEDS ORDERED: POLYMYXIN B SULFATE 500,000 UNIT/10 ML SYR IRR ONE (12:33)
[2017-01-06] MEDS: PSYLLIUM METAMUCIL 1 PKT PO SCH ×2 (12:36→21:28)
[2017-01-06] MEDS: SENNOSIDES/DOCUSATE SODIUM TAB PO SCH ×2 (12:36→21:06)
[2017-01-06] MEDS: LISINOPRIL/HCTZ 20/12.5MG 1 EA TAB PO SCH (12:36)
[2017-01-06] MEDS ORDERED: PHENYLEPHRINE HCL 100 MCG/ML SYR ONE (13:53)
[2017-01-06] MEDS ORDERED: diphenhydrAMINE 25 MG CAP PO PRN (14:38)
[2017-01-06] MEDS ORDERED: DIAZEPAM 10 MG/2 ML SYR IVP PRN (14:38)
--- NOTE | 2017-01-06 15:03 | POSTOPPROG ---
Post Op Note Date of Operation: 01/06/17 Surgeon: Martha Hobbs Post Acute Care Nurse Practitioner: Moriah Iglesias Anesthesia: GET(General Endotracheal) Pre-op Diagnosis: Infection Post-op Diagnosis: Infection Procedure: Removcal of intrathecal pain pump and SCS generator and leads Inf/Abcess present in the surg proc area at time of surgery?: Yes Depth: Deep Incisional (Fascial) Plan Plan: 46 yo female s/p removal of intrathecal pain pump and SCS lead and generator due to infection - neuro checks - pain control. Discussed with patient's outpatient pain doc Dr. Lopez- start Dilaudid po 4 mg every 4 hours and Klonopin 0.5 mg TID - HOB flat for 5 days, no reverse Trendelenburg. OK to bend knees and roll from side to side - IV abx per ID - call neurosurgery with any changes in neuro status/exam Exam Awake. Alert. Speech fluent Following commands Muscle strength full
--- NOTE | 2017-01-06 15:08 | GOP ---
[f rep st] OPERATIVE REPORT DATE OF OPERATION: 01/06/2017 SURGEON: Martha Hobbs DO BLEACH MACHINE OPERATOR: Moriah Iglesias, HENRRY. PREOPERATIVE DIAGNOSIS: Infected intrathecal pump catheter. POSTOPERATIVE DIAGNOSIS: Infected intrathecal pump catheter. Inclusion of infected spinal cord sti mulator. PROCEDURE PERFORMED: Removal of intrathecal pump catheter. Removal of intrathecal pump. Removal o f spinal cord stimulator percutaneous leads x3. Removal of spinal cord stimulator generator. FINDINGS: SPECIMENS: Cultures from each incision and all hardware was sent for microbiology. ESTIMATED BLOOD LOSS: 75 mL. INDICATIONS: This is a 46-year-old female who has percutaneous spinal cord stimulator wires as well as has an intrathecal pump. The pump was placed approximately a month ago. She has been dealing w ith cerebrospinal fluid leak with multiple blood patches that have failed to recover. She then had dehiscence of her wound with pus and has been found to have MSSA meningitis and infected pump. She was consented for removal of the pump. I did discuss with her the possibility she might eventually have to have the stimulator removed. She was consented for pump removal. DESCRIPTION OF PROCEDURE: Sites were marked. She was brought to the operating room, anesthetized u nder general endotracheal tube anesthesia, placed on the yuen bag with an axillary roll and all pres sure points were appropriately padded. Incision sites were marked. She was prepped and draped in t he usual sterile fashion. Incision at the lumbar spine was opened with a 10 blade, and cultures wer e immediately taken. Egress of purulent material was noted. We then opened the abdominal incision and egress of a copious amount of purulent material from the pump pocket occurred. The catheter was located and removed from the lumbar incision and cut. The distal tip was sent and a stay suture wa s placed around where the catheter was protruding from the fascia. We then removed the entire pump and inspected that we had removed all hardware, then copiously irrigated each incision with over 2 L each of bacitracin infused saline. We attempted to close the deep tissues, but they were macerated it was very difficult, but closed the deep pocket of the pump with 2-0 Vicryl pop-offs, the deep fa scia with 2-0 Vicryl pop-offs, subcutaneous layer with 2-0 Vicryl pop-offs, cutaneous layer with 3-0 Vicryl pop-offs. The skin was closed with 3-0 running nylon at both positions. While irrigating the pump lumbar incision, it was noted that the stimulator wires were visualized. At that point in time, I scrubbed out. I called Dr. Lopez, who agreed that the stimulator needed to be removed if it was traversing the incision, as it was also seeded and infected. I also called he r , who gave consent to remove the stimulator at this point in time. We then closed the skin with 3-0 nylon, dressed both wounds with Xeroform and gauze, rolled her onto a Michael table and a Stephan frame, localized with the x-rays her anchors and generator and incision sites were marked. S he was again prepped and draped in usual sterile fashion. Incision was made over the anchors with a 10 blade and we dissected down with a PlasmaBlade until we found the anchors. Brought all 3 of the percutaneous wires up and out, visualizing that all contacts were removed, cut them distally. We o pened the incision and took a culture from that space, sent these wires as well. We then opened the generator incision with a fresh 10 blade, and then used the PlasmaBlade to dissect out the generato r and the wires, bringing them all the way out, inspecting visually that we had all hardware removed . We took a culture from this site as well. We then copiously irrigated with over a liter each of bacitracin infused saline. Closed the fascia with 2-0 Vicryl pop-offs, subcutaneous layer with 2-0 Vicryl pop-offs. The skin was closed with 3-0 running nylon. All wounds were then redressed with X eroform gauze and Medipore tape. Patient tolerated procedure well. Neuro monitoring remained stabl e. There were no complications. FLUIDS: 700 mL crystalloid. URINE OUTPUT: None. DRAINS: None. DRAINS: None. COMPLICATIONS: Stimulator wire traversing the lumbar intrathecal pump incision, requiring removal o f the spinal cord stimulator. /[id number]/MODL
[2017-01-06] MEDS ORDERED: HYDROmorphONE/DILAUDID 1 MG/ML SYR ONE (15:13)
[2017-01-06] MEDS: clonazePAM 0.5 MG TAB PO SCH ×2 (17:37→21:15)
[2017-01-06] MEDS: HYDROmorphONE/DILAUDID 4 MG TAB PO PRN ×2 (17:37→21:06)
[2017-01-06] MEDS ORDERED: HYDROmorphONE/DILAUDID 1 MG/ML SYR IVP PRN (17:53)
[2017-01-06] MEDS: ATORVASTATIN CALCIUM 40 MG TAB PO SCH (21:10)
[2017-01-06] MEDS: NORTRIPTYLINE HCL 25 MG CAP PO SCH (21:11)
[2017-01-06] MEDS: Meloxicam [Mobic] 15 MG PO SCH (21:13)
[2017-01-06] MEDS: ONDANSETRON DISINTEGRATING 4 MG TAB PO PRN (21:15)
[2017-01-07] MEDS: NS W/ 20 KCl/L 1,000 ML IV SCH ×2 (00:50→16:44)
[2017-01-07] MEDS: NAFCILLIN SODIUM 2 GM in D5W 100 ML IV SCH ×7 (00:50→21:33)
[2017-01-07] MEDS: HYDROmorphONE/DILAUDID 4 MG TAB PO PRN ×6 (00:51→21:27)
[2017-01-07 05:52] LABS: HEMATOCRIT 35.9 % (38.0-47.0); MEAN CELL HEMOGLOBIN 29.5 pg (27.9-34.1); MEAN CELL HEMOGLOBIN CONCENTR. 33.4 g/dL (32.4-36.7); MEAN CELL VOLUME 88.2 fL (81.5-99.8); RED BLOOD CELL COUNT 4.07 10^6/uL (4.18-5.33); RED CELL DISTRIBUTION WIDTH 13.7 % (11.5-15.2)
[2017-01-07 06:02] LABS: ANION GAP 7 mEq/L (8-16); CALCIUM 8.6 mg/dL (8.5-10.4); CARBON DIOXIDE 25 mEq/l (22-31); CHLORIDE 105 mEq/L (97-110); CREATININE 0.6 mg/dL (0.6-1.0); GLOMERULAR FILTRATION RATE > 60; GLUCOSE 91 mg/dL (70-100); POTASSIUM 4.1 mEq/L (3.5-5.2); SODIUM 137 mEq/L (134-144)
--- NOTE | 2017-01-07 07:35 | NEUSURGPN ---
Date of Surgery: 01/06/17 Post Op Day: 1 Assessment/Plan: 46 yo female s/p removal of IT pump and SCS generator and leads due to infection - neuro stable - head of bed flat for 5 days, until 01/11/17 - pain control, oral dilaudid and klonopin started (recommended by her outpatient pain doc Dr. Lopez) - maintain coronel due to immobility - IV abx per ID Discussed with Dr. Hobbs Subjective: Pain currently controlled. Objective: Awake. Alert. Speech fluent Facial expression symmetrical Muscle strength full at 5/5 Sensation intact - Physician Discussed Patient with : Faby Neurosurgery Physical Exam - Vitals, I&O, Labs I and O 01/06/17 01/07/17 01/08/17 05:59 05:59 05:59 Intake Total 1752 4800 Output Total 4750 3600 Balance -2998 1200 Intake: Oral (ml) 300 1500 IV Intake (ml) 667 1800 IV Infused (ml) 785 1500 Cefepime HCl 2 gm In D5w 200 100 ml @ 200 mls/hr IV Q8HRS SILVINO Rx#:[id number] NS W/ 20 KCl/L 1,000 ml @ 300 100 mls/hr IV CONT SILVINO Rx#:[id number] NS W/ 20 KCl/L 1,000 ml @ 1200 100 mls/hr IV CONT SILVINO Rx#:[id number] Nafcillin Sodium 2 gm In 300 D5w 100 ml @ 100 mls/hr IV Q4H S[facility]INO Rx#:[id number] Vancomycin 1.5 gm In D5w 285 250 ml @ 166.67 mls/hr IV Q12H SILVINO Rx#:[id number] Output: Urine (ml) 4750 3550 Bedpan 200 Catheter 3350 Toilet 4750 Estimated Blood Loss (ml) 50 Other: Intake Quantity Yes Sufficient Number of Voids Toilet 3 Microbiology 01/05/17 05:00 Gram Stain - Final Back - Eswab 01/06/17 12:55 Gram Stain - Final Back - Eswab 01/06/17 12:55 Gram Stain - Final Abdomen - Eswab 01/06/17 12:55 Gram Stain - Final Abdomen - Eswab 01/06/17 12:55 Gram Stain - Final Back - Eswab 01/04/17 Unknown Urine Culture - Final Urine,Clean Catch 01/04/17 14:20 Gram Stain - Final Cerebral Spinal Fluid Vital Signs Temp Pulse Resp BP Pulse Ox 36.7 C 77 16 103/65 1 L 01/07/17 04:00 01/07/17 04:00 01/07/17 04:00 01/07/17 04:00 01/07/17 04:00 Laboratory Results 01/07/17 05:35 01/07/17 05:35 ICD10 Worksheet Patient Problems: Problems Problem Status Onset Back pain Acute Fever Acute Leukocytosis Acute Severe sepsis Acute Fever Acute Headache Acute
[2017-01-07] MEDS: Canagliflozin [Invokana] 300 MG PO SCH (07:44)
[2017-01-07] MEDS: PSYLLIUM METAMUCIL 1 PKT PO SCH ×2 (08:27→21:29)
[2017-01-07] MEDS: CHOLECALCIFEROL VIT D3 2,000 UNITS TAB/CAP PO SCH (08:27)
[2017-01-07] MEDS: LISINOPRIL/HCTZ 20/12.5MG 1 EA TAB PO SCH (08:27)
[2017-01-07] MEDS: SENNOSIDES/DOCUSATE SODIUM TAB PO SCH ×2 (08:28→21:29)
[2017-01-07] MEDS: clonazePAM 0.5 MG TAB PO SCH ×3 (08:28→21:27)
[2017-01-07] MEDS: METHOCARBAMOL 750 MG TAB PO PRN ×2 (10:31→21:27)
--- NOTE | 2017-01-07 11:12 | HOSPPROG ---
Hospitalist Progress Note Assessment/Plan: #Sepsis: 2/ #MSSA Meningitis and infected intrathecal pain pump -empiric Vanc/Cefepime. Change to Nafcillin for 2 weeks from pump removal. Check LFTs -NSGY removed pump, generator and leads 01/06 -Must lay flat, no Trendelburg for 5 days. #Leukocytosis: trending down with abx #Acute on chronic back pain: her pain doc, Dr. Lopez, was contacted and rec PO dilaudid and Klonopin. -PRN IV dilaudid for breakthrough -I discussed with pt about other treatments for neuropathic pain: she has had severe reactions to Lyrica and Gabapentin #Controlled DM: Januvia #Normocytic anemia: no acute blood loss #Benign HTN: cont home meds #HLD: statin #Left breast lump: mammogram as outpatient #Headache: due to leak. She states caffeine helpful #Hypokalemia: replete #Diet: diabetic #DVT ppx: SCDs #Disp: warrants inpt admission with meningitis, IV abx Subjective: pain controlled currently Objective: Vital Signs Temp Pulse Resp BP Pulse Ox 36.7 C 82 18 140/91 H 97 01/07/17 04:00 01/07/17 08:16 01/07/17 08:16 01/07/17 08:16 01/07/17 08:16 Microbiology 01/05/17 05:00 Gram Stain - Final Back - Eswab 01/06/17 12:55 Gram Stain - Final Back - Eswab 01/06/17 12:55 Gram Stain - Final Abdomen - Eswab 01/06/17 12:55 Gram Stain - Final Abdomen - Eswab 01/06/17 12:55 Gram Stain - Final Back - Eswab 01/04/17 Unknown Urine Culture - Final Urine,Clean Catch 01/04/17 14:20 Gram Stain - Final Cerebral Spinal Fluid Laboratory Results 01/07/17 05:35 01/07/17 05:35 01/06/17 01/07/17 01/08/17 05:59 05:59 05:59 Intake Total 1752 4800 Output Total 4750 3600 Balance -2998 1200 PT 13.1 SEC (12.0-15.0) 01/04/17 11:00 INR 1.00 (0.83-1.16) 01/04/17 11:00 - Physical Exam Constitutional: no apparent distress, obese, other (laying flat in bed) Eyes: PERRL Ears, Nose, Mouth, Throat: moist mucous membranes, hearing normal Cardiovascular: regular rate and rhythym, no murmur, rub, or gallop Respiratory: no respiratory distress Gastrointestinal: normoactive bowel sounds, soft, non-tender abdomen Genitourinary: no bladder fullness Skin: warm Musculoskeletal: full muscle strength Neurologic: AAOx3, CN II-XII Intact Psychiatric: interacting appropriately ICD10 Worksheet Patient Problems: Problems Problem Status Onset Back pain Acute Fever Acute Leukocytosis Acute Severe sepsis Acute Fever Acute Headache Acute
--- NOTE | 2017-01-07 13:54 | PCMIDPN ---
Assessment/Plan: Assessment: Staph aureus infection of indwelling pain pump-MSSA by culture. Patient is tolerating IV nafcillin without rash or laboratory abnormality to date. Plan to continue this monotherapy. Will likely need at least 4 weeks of treatment post hardware removal. Clinically stable at present. Plan: 1. Continue IV nafcillin. 2. Follow clinical course. 3. Blood cultures have remained clear. No need for follow-up cultures. Subjective: Patient is laying flat in her bed in the ICU. No new complaints. States that she feels decent considering. Pain is well controlled. No subjective fevers. Objective: Nafcillin # 1 (# 3) Vital Signs Temp Pulse Resp BP Pulse Ox 36.7 C 82 18 140/91 H 97 01/07/17 04:00 01/07/17 08:16 01/07/17 08:16 01/07/17 08:16 01/07/17 08:16 Microbiology 01/05/17 05:00 Gram Stain - Final Back - Eswab Wound Culture - Final Staphylococcus Aureus 01/06/17 12:55 Gram Stain - Final Back - Eswab 01/06/17 12:55 Gram Stain - Final Abdomen - Eswab 01/06/17 12:55 Gram Stain - Final Abdomen - Eswab 01/06/17 12:55 Gram Stain - Final Back - Eswab 01/04/17 Unknown Urine Culture - Final Urine,Clean Catch 01/04/17 14:20 Gram Stain - Final Cerebral Spinal Fluid Laboratory Results 01/07/17 05:35 01/07/17 05:35 01/06/17 01/07/17 01/08/17 05:59 05:59 05:59 Intake Total 1752 4800 Output Total 4750 3600 2000 Balance -2998 1200 -2000 - Physical Exam General Appearance: WD/WN, alert, no apparent distress, non-toxic Respiratory: lungs clear, normal breath sounds, No respiratory distress Cardiac/Chest: regular rate, rhythm, No tachycardia Skin: normal color, warm/dry, No rash Neuro/Psych: alert, normal mood/affect, oriented x 3 ICD10 Worksheet Patient Problems: Problems Problem Status Onset Back pain Acute Fever Acute Leukocytosis Acute Severe sepsis Acute Fever Acute Headache Acute
[2017-01-07] MEDS: ATORVASTATIN CALCIUM 40 MG TAB PO SCH (21:29)
[2017-01-07] MEDS: Meloxicam [Mobic] 15 MG PO SCH (21:32)
[2017-01-07] MEDS: NORTRIPTYLINE HCL 25 MG CAP PO SCH (21:32)
[2017-01-08] MEDS: OXYCODONE/APAP 5/325 TAB PO PRN ×3 (00:05→19:21)
[2017-01-08] MEDS: HYDROmorphONE/DILAUDID 4 MG TAB PO PRN ×4 (00:51→22:20)
[2017-01-08] MEDS: NAFCILLIN SODIUM 2 GM in D5W 100 ML IV SCH ×6 (00:51→21:29)
[2017-01-08] MEDS: NS W/ 20 KCl/L 1,000 ML IV SCH ×2 (04:25→18:11)
[2017-01-08] MEDS: METHOCARBAMOL 750 MG TAB PO PRN ×3 (04:39→22:18)
[2017-01-08 04:41] LABS: HEMATOCRIT 38.8 % (38.0-47.0); HEMOGLOBIN 12.9 g/dL (12.6-16.3); MEAN CELL HEMOGLOBIN 29.9 pg (27.9-34.1); MEAN CELL HEMOGLOBIN CONCENTR. 33.2 g/dL (32.4-36.7); MEAN CELL VOLUME 89.8 fL (81.5-99.8); RED BLOOD CELL COUNT 4.32 10^6/uL (4.18-5.33); RED CELL DISTRIBUTION WIDTH 13.9 % (11.5-15.2)
[2017-01-08 05:11] LABS: ANION GAP 7 mEq/L (8-16); CALCIUM 8.8 mg/dL (8.5-10.4); CARBON DIOXIDE 28 mEq/l (22-31); CHLORIDE 106 mEq/L (97-110); CREATININE 0.8 mg/dL (0.6-1.0); GLOMERULAR FILTRATION RATE > 60; GLUCOSE 104 mg/dL (70-100); SODIUM 141 mEq/L (134-144)
[2017-01-08] MEDS: Canagliflozin [Invokana] 300 MG PO SCH (07:46)
[2017-01-08] MEDS: PSYLLIUM METAMUCIL 1 PKT PO SCH ×2 (09:02→21:29)
[2017-01-08] MEDS: SENNOSIDES/DOCUSATE SODIUM TAB PO SCH ×2 (09:02→22:20)
[2017-01-08] MEDS: CHOLECALCIFEROL VIT D3 2,000 UNITS TAB/CAP PO SCH (09:02)
[2017-01-08] MEDS: LISINOPRIL/HCTZ 20/12.5MG 1 EA TAB PO SCH (09:02)
[2017-01-08] MEDS: clonazePAM 0.5 MG TAB PO SCH ×3 (09:02→22:18)
--- NOTE | 2017-01-08 10:03 | PCMIDPN ---
Assessment/Plan: # Postop MSSA Pain pump infection and meningitis s/p pump removal 01/06/2017. No evidence of bacteremia with blood cultures 01/04 negative to date --plan 14 days IV nafcillin , so far ANC, LFTs and creatinine all stable. No clinical toxicity detected --reviewed duration of antibiotic therapy, reasons for selection of nafcillin including B[employer]ER penetration and narrower spectrum of activity, also reviewed toxicity as described above # Leukocytosis : secondary to infection, improving Medications Nafcillin 2 g IV Q 4h, #11/04 Subjective: Pain significantly improved. Headache resolved, photophobia resolved. Denies rash, diarrhea, itching Objective: Vital Signs Temp Pulse Resp BP Pulse Ox 36.7 C 72 18 146/87 H 96 01/08/17 08:13 01/08/17 08:13 01/08/17 08:13 01/08/17 08:13 01/08/17 08:13 Microbiology 01/06/17 12:55 Gram Stain - Final Back - Eswab 01/04/17 14:20 Gram Stain - Final Cerebral Spinal Fluid 01/06/17 12:55 Gram Stain - Final Abdomen - Eswab 01/06/17 12:55 Gram Stain - Final Back - Eswab 01/06/17 12:55 Gram Stain - Final Abdomen - Eswab 01/05/17 05:00 Gram Stain - Final Back - Eswab Wound Culture - Final Staphylococcus Aureus Laboratory Results 01/08/17 04:32 01/08/17 04:32 01/07/17 01/08/17 01/09/17 05:59 05:59 05:59 Intake Total 4800 6981 Output Total 3600 8750 Balance 1200 -1769 - Physical Exam General Appearance: alert, no apparent distress EENT: pale conjunctiva, No thrush Respiratory: lungs clear Neck: supple Cardiac/Chest: regular rate, rhythm, No systolic murmur Extremities: No pedal edema Abdomen: non-tender, soft, other (Abdominal incision with a small amount of discharge on surgical dressings but no strike through) Pelvic Exam: coronel Back: other (Dressing still in place from surgery, dressing is dry) Skin: No rash Neuro/Psych: no motor/sensory deficits, alert, normal mood/affect, oriented x 3 - Line/s RUE PICC Lines: No drainage, No erythema - Time Spent With Patient Time Spent with Patient: greater than 35 minutes Time Spent with Patient: Greater than 35 minutes spent on this patients care, greater than 50% of time spent counseling, educating, and coordinating care regarding the above mentioned plan. ICD10 Worksheet Patient Problems: Problems Problem Status Onset Back pain Acute Fever Acute Leukocytosis Acute Severe sepsis Acute Fever Acute Headache Acute
--- NOTE | 2017-01-08 10:42 | NEUSURGPN ---
Assessment/Plan: 46 yo female s/p removal of IT pump and SCS generator and leads due to infection - neuro stable - head of bed flat for 5 days, until 01/11/17 - pain control, oral dilaudid and klonopin started (recommended by her outpatient pain doc Dr. Lopez) - maintain coronel due to immobility - IV abx per ID Discussed with Dr. Hobbs Subjective: Pt resting in bed, feeling ok. Objective: AAOx3 NAD VSS MAEx4 Motor 5/5 BLE +LT Urinary Catheter in Place: Yes Urinary Catheter Indication: Other (Use Comment) (not ambulatory) - Physician Discussed Patient with : [facility] Neuro[facility] Physical Exam - Vitals, I&O, Labs I and O 01/07/17 01/08/17 01/09/17 05:59 05:59 05:59 Intake Total 4800 6981 Output Total 3600 8750 Balance 1200 -1769 Intake: Oral (ml) 1500 3500 IV Intake (ml) 1800 IV Infused (ml) 1500 3481 NS W/ 20 KCl/L 1,000 ml @ 1200 2981 100 mls/hr IV CONT [facility] Rx#:[id number] Nafcillin Sodium 2 gm In 300 500 D5w 100 ml @ 100 mls/hr IV Q4H [facility] Rx#:[id number] Output: Urine (ml) 3550 8750 Bedpan 200 Catheter 3350 8750 Estimated Blood Loss (ml) 50 Other: Intake Quantity Yes Sufficient Microbiology 01/06/17 12:55 Gram Stain - Final Back - Eswab 01/04/17 14:20 Gram Stain - Final Cerebral Spinal Fluid 01/06/17 12:55 Gram Stain - Final Abdomen - Eswab 01/06/17 12:55 Gram Stain - Final Back - Eswab 01/06/17 12:55 Gram Stain - Final Abdomen - Eswab 01/05/17 05:00 Gram Stain - Final Back - Eswab Wound Culture - Final Staphylococcus Aureus Vital Signs Temp Pulse Resp BP Pulse Ox 36.7 C 72 18 146/87 H 96 01/08/17 08:13 01/08/17 08:13 01/08/17 08:13 01/08/17 08:13 01/08/17 08:13 Laboratory Results 01/08/17 04:32 01/08/17 04:32 ICD10 Worksheet Patient Problems: Problems Problem Status Onset Back pain Acute Fever Acute Leukocytosis Acute Severe sepsis Acute Fever Acute Headache Acute
--- NOTE | 2017-01-08 17:22 | HOSPPROG ---
Hospitalist Progress Note Assessment/Plan: * MSSA sepsis due to meningitis -IV nafcillin x 2 weeks * Infected intra-thecal pump s/p removal -must lay flat for 5 days * Acute on chronic back pain with continuous narcotic dependency -PO dilaudid + Klonopin - recommended by her pain specialist * DM II -Hilda * HTN * Left breast lump - op follow-up DVT prophylaxis - SCDs in place -d/w neurosurgery Lovenox use Subjective: doing well with supine position Objective: Vital Signs Temp Pulse Resp BP Pulse Ox 36.9 C 86 18 114/61 95 01/08/17 16:27 01/08/17 16:27 01/08/17 16:27 01/08/17 16:27 01/08/17 16:27 Microbiology 01/06/17 12:55 Gram Stain - Final Back - Eswab 01/06/17 12:55 Gram Stain - Final Back - Eswab 01/06/17 12:55 Gram Stain - Final Abdomen - Eswab 01/06/17 12:55 Gram Stain - Final Abdomen - Eswab 01/04/17 14:20 Gram Stain - Final Cerebral Spinal Fluid 01/05/17 05:00 Gram Stain - Final Back - Eswab Wound Culture - Final Staphylococcus Aureus Laboratory Results 01/08/17 04:32 01/08/17 04:32 01/07/17 01/08/17 01/09/17 05:59 05:59 05:59 Intake Total 4800 6981 Output Total 3600 8750 3650 Balance 1200 -1769 -3650 PT 13.1 SEC (12.0-15.0) 01/04/17 11:00 INR 1.00 (0.83-1.16) 01/04/17 11:00 CT abd/pelvis - seroma associated with pump cxr viewed, my personal interpretation is - negative - Physical Exam Constitutional: no apparent distress, appears nourished, not in pain Cardiovascular: regular rate and rhythym, no murmur, rub, or gallop Respiratory: no respiratory distress, no rales or rhonchi, clear to auscultation Gastrointestinal: normoactive bowel sounds, soft, non-tender abdomen, no palpable masses Skin: no rashes or abrasions, no fluctuance, no induration Neurologic: AAOx3, sensation intact bilaterally Psychiatric: interacting appropriately, not anxious, not encephalopathic, thought process linear ICD10 Worksheet Patient Problems: Problems Problem Status Onset Back pain Acute Fever Acute Leukocytosis Acute Severe sepsis Acute Fever Acute Headache Acute
[2017-01-08] MEDS: ATORVASTATIN CALCIUM 40 MG TAB PO SCH (22:18)
[2017-01-08] MEDS: NORTRIPTYLINE HCL 25 MG CAP PO SCH (22:19)
[2017-01-08] MEDS: Meloxicam [Mobic] 15 MG PO SCH (22:21)
[2017-01-08] MEDS: ONDANSETRON DISINTEGRATING 4 MG TAB PO PRN (22:24)
[2017-01-09] MEDS: NAFCILLIN SODIUM 2 GM in D5W 100 ML IV SCH ×6 (01:41→22:28)
[2017-01-09] MEDS: HYDROmorphONE/DILAUDID 4 MG TAB PO PRN ×4 (03:45→22:19)
[2017-01-09 05:36] LABS: % IMMATURE GRANULYOCYTES 1.5 % (0.0-1.1); ABSOLUTE IMMATURE GRANULOCYTES 0.15 10^3/uL (0.00-0.10); ADD DIFF? NO; ADD MORPH? NO; ADD SCAN? NO; ATYPICAL LYMPHOCYTE FLAG 10 (0-99); FRAGMENT RBC FLAG 0 (0-99); HEMATOCRIT 39.9 % (38.0-47.0); HEMOGLOBIN 13.3 g/dL (12.6-16.3); LEFT SHIFT FLG 10 (0-99); LIPEMIA HEMOLYSIS FLAG 80 (0-99); MEAN CELL HEMOGLOBIN 29.4 pg (27.9-34.1); MEAN CELL HEMOGLOBIN CONCENTR. 33.3 g/dL (32.4-36.7); MEAN CELL VOLUME 88.3 fL (81.5-99.8); MEAN PLATELET VOLUME 9.6 fL (8.7-11.7); PLATELET CLUMPS FLAG 0 (0-99); PLATELET COUNT 240 10^3/uL (150-400); RED BLOOD CELL COUNT 4.52 10^6/uL (4.18-5.33); RED CELL DISTRIBUTION WIDTH 13.7 % (11.5-15.2)
[2017-01-09 05:48] LABS: ANION GAP 8 mEq/L (8-16); CALCIUM 9.4 mg/dL (8.5-10.4); CARBON DIOXIDE 29 mEq/l (22-31); CHLORIDE 103 mEq/L (97-110); CREATININE 0.7 mg/dL (0.6-1.0); GLOMERULAR FILTRATION RATE > 60; GLUCOSE 97 mg/dL (70-100); SODIUM 140 mEq/L (134-144)
--- NOTE | 2017-01-09 07:42 | NEUSURGPN ---
Assessment/Plan: 46 yo female s/p removal of IT pump and SCS generator and leads due to infection - neuro stable - head of bed flat for 5 days, until 01/11/17 - pain control, oral dilaudid and klonopin started (recommended by her outpatient pain doc Dr. Lopez) - maintain coronel due to immobility - IV abx per ID - Pt c/o flushing/sweating, could be med related. If persists will discuss with pharmacy. Discussed with Dr. Hobbs Subjective: Pt resting in bed, c/o intermittent flushing/sweating episodes. Otherwise doing fine. Objective: AAOx3 NAD VSS MAEx4 abdominal and posterior lumbar incisions cdi dressed Urinary Catheter in Place: Yes Urinary Catheter Indication: Other (Use Comment) (must lay flat in bed) - Physician Discussed Patient with : Faby Neurosurgery Physical Exam - Vitals, I&O, Labs I and O 01/08/17 01/09/17 01/10/17 05:59 05:59 05:59 Intake Total 6981 6972 Output Total 8750 8650 475 Balance -1769 -2167 -475 Intake: Oral (ml) 3500 5250 IV Intake (ml) 1197 IV Infused (ml) 3481 525 NS W/ 20 KCl/L 1,000 ml @ 2981 210 100 mls/hr IV CONT [facility] Rx#:[id number] Nafcillin Sodium 2 gm In 500 315 D5w 100 ml @ 100 mls/hr IV Q4H [facility] Rx#:[id number] Output: Urine (ml) 8750 8650 475 Catheter 8750 8650 475 Other: Number of Stools Toilet 1 Microbiology 01/06/17 12:55 Gram Stain - Final Back - Eswab 01/06/17 12:55 Gram Stain - Final Back - Eswab 01/06/17 12:55 Gram Stain - Final Abdomen - Eswab 01/06/17 12:55 Gram Stain - Final Abdomen - Eswab 01/04/17 14:20 Gram Stain - Final Cerebral Spinal Fluid Vital Signs Temp Pulse Resp BP Pulse Ox 36.6 C 85 18 134/85 H 96 01/09/17 07:30 01/09/17 07:30 01/09/17 07:30 01/09/17 07:30 05/19/17 07:30 Laboratory Results 01/09/17 05:20 01/09/17 05:20 ICD10 Worksheet Patient Problems: Problems Problem Status Onset Back pain Acute Fever Acute Leukocytosis Acute Severe sepsis Acute Fever Acute Headache Acute
[2017-01-09] MEDS: Canagliflozin [Invokana] 300 MG PO SCH (08:50)
[2017-01-09] MEDS: SENNOSIDES/DOCUSATE SODIUM TAB PO SCH ×2 (09:43→22:26)
[2017-01-09] MEDS: LISINOPRIL/HCTZ 20/12.5MG 1 EA TAB PO SCH (09:43)
[2017-01-09] MEDS: clonazePAM 0.5 MG TAB PO SCH ×3 (09:43→22:20)
[2017-01-09] MEDS: PSYLLIUM METAMUCIL 1 PKT PO SCH ×2 (09:43→22:18)
[2017-01-09] MEDS: CHOLECALCIFEROL VIT D3 2,000 UNITS TAB/CAP PO SCH (09:44)
--- NOTE | 2017-01-09 11:10 | PCMIDPN ---
Assessment/Plan: Assessment: Staph aureus infection of indwelling pain pump-MSSA by culture. Patient is tolerating IV nafcillin without rash or laboratory abnormality to date. Plan to continue this monotherapy. Will likely need at least 4 weeks of treatment post hardware removal. Clinically stable at present. Plan: 1. Continue IV nafcillin. 2. Follow clinical course. 3. Blood cultures have remained clear. No need for follow-up cultures. Subjective: Patient is doing well. Still lying flat on bed due to spinal leak prevention. No fevers. No rash. Objective: Nafcillin #3 (#5) Vital Signs Temp Pulse Resp BP Pulse Ox 36.6 C 85 18 134/85 H 96 01/09/17 07:30 01/09/17 07:30 01/09/17 07:30 01/09/17 07:30 01/09/17 07:30 Microbiology 01/06/17 12:55 Gram Stain - Final Back - Eswab 01/06/17 12:55 Gram Stain - Final Back - Eswab 01/06/17 12:55 Gram Stain - Final Abdomen - Eswab 01/06/17 12:55 Gram Stain - Final Abdomen - Eswab 01/04/17 14:20 Gram Stain - Final Cerebral Spinal Fluid Laboratory Results 01/09/17 05:20 01/09/17 05:20 01/08/17 01/09/17 01/10/17 05:59 05:59 05:59 Intake Total 9581 6972 Output Total 8750 8650 475 [facility] -5417 -3532 -035 - Physical Exam General Appearance: WD/WN, alert, no apparent distress, non-toxic Respiratory: lungs clear, normal breath sounds, No respiratory distress Cardiac/Chest: regular rate, rhythm, No tachycardia Skin: normal color, warm/dry, No rash Neuro/Psych: alert, normal mood/affect, oriented x 3 ICD10 Worksheet Patient Problems: Problems Problem Status Onset Back pain Acute Fever Acute Leukocytosis Acute Severe sepsis Acute Fever Acute Headache Acute
[2017-01-09] MEDS ORDERED: ENOXAPARIN 40 MG/0.4 ML SYR SC SCH ×2 (11:15→21:00)
[2017-01-09] MEDS: METHOCARBAMOL 750 MG TAB PO PRN ×2 (12:38→16:42)
[2017-01-09] MEDS: ENOXAPARIN 40 MG/0.4 ML SYR SC SCH ×2 (12:39→22:22)
[2017-01-09 15:27] VITALS: RESP 16
--- NOTE | 2017-01-09 16:00 | HOSPPROG ---
Hospitalist Progress Note Assessment/Plan: * MSSA sepsis due to meningitis -IV nafcillin x 2 weeks * Infected intra-thecal pump/spinal stimulator s/p removal -must lay flat for 5 days - through 01/11 * Acute on chronic back pain with continuous narcotic dependency -PO dilaudid + Klonopin - recommended by her pain specialist * DM II -Epifaniouvia * HTN * Left breast lump - op follow-up DVT prophylaxis - SCDs in place -d/w neurosurgery - ok for [facility] Subjective: No new complaints. Objective: Vital Signs Temp Pulse Resp BP Pulse Ox 36.5 C 97 16 130/80 H 94 01/09/17 15:26 01/09/17 15:26 01/09/17 15:26 01/09/17 15:26 01/09/17 15:26 Microbiology 01/06/17 12:55 Gram Stain - Final Abdomen - Eswab 01/06/17 12:55 Gram Stain - Final Back - Eswab 01/04/17 14:20 Gram Stain - Final Cerebral Spinal Fluid 01/06/17 12:55 Catheter Tip Culture - Final Catheter Tip Staphylococcus Aureus 01/06/17 12:55 Gram Stain - Final Abdomen - Eswab 01/06/17 12:55 Gram Stain - Final Back - Eswab Laboratory Results 01/09/17 05:20 01/09/17 05:20 01/08/17 01/09/17 01/10/17 05:59 05:59 05:59 Intake Total 6981 6972 Output Total 8750 8650 7020 Balance -0788 -9350 -2952 PT 13.1 SEC (12.0-15.0) 01/04/17 11:00 INR 1.00 (0.83-1.16) 01/04/17 11:00 - Physical Exam Constitutional: no apparent distress, appears nourished, not in pain Cardiovascular: regular rate and rhythym, no murmur, rub, or gallop Respiratory: no respiratory distress, no rales or rhonchi, clear to auscultation Gastrointestinal: normoactive bowel sounds, soft, non-tender abdomen, no palpable masses Skin: no rashes or abrasions, no fluctuance, no induration Neurologic: AAOx3, sensation intact bilaterally Psychiatric: interacting appropriately, not anxious, not encephalopathic, thought process linear ICD10 Worksheet Patient Problems: Problems Problem Status Onset Back pain Acute Fever Acute Leukocytosis Acute Severe sepsis Acute Fever Acute Headache Acute
[2017-01-09] MEDS: ATORVASTATIN CALCIUM 40 MG TAB PO SCH (22:19)
[2017-01-09] MEDS: NORTRIPTYLINE HCL 25 MG CAP PO SCH (22:19)
[2017-01-09] MEDS: Meloxicam [Mobic] 15 MG PO SCH (22:27)
[2017-01-10] MEDS: NAFCILLIN SODIUM 2 GM in D5W 100 ML IV SCH ×6 (01:50→21:36)
[2017-01-10] MEDS: HYDROmorphONE/DILAUDID 4 MG TAB PO PRN ×4 (01:51→21:37)
[2017-01-10] MEDS: ONDANSETRON 4 MG/2 ML VIAL IVP PRN (07:36)
[2017-01-10] MEDS: DIAZEPAM 5 MG TAB PO PRN ×2 (07:49→13:30)
[2017-01-10] MEDS: clonazePAM 0.5 MG TAB PO SCH ×3 (07:55→21:35)
[2017-01-10] MEDS: CHOLECALCIFEROL VIT D3 2,000 UNITS TAB/CAP PO SCH (07:55)
[2017-01-10] MEDS: ENOXAPARIN 40 MG/0.4 ML SYR SC SCH ×2 (07:55→21:35)
[2017-01-10] MEDS: LISINOPRIL/HCTZ 20/12.5MG 1 EA TAB PO SCH (07:55)
[2017-01-10] MEDS: PSYLLIUM METAMUCIL 1 PKT PO SCH ×2 (07:56→21:44)
[2017-01-10] MEDS: Canagliflozin [Invokana] 300 MG PO SCH (07:57)
[2017-01-10] MEDS: SENNOSIDES/DOCUSATE SODIUM TAB PO SCH ×2 (07:59→21:44)
--- NOTE | 2017-01-10 09:45 | NEUSURGPN ---
Assessment/Plan: 46 yo female s/p removal of IT pump and SCS generator and leads due to infection - neuro stable - head of bed flat for 5 days, until 01/11/17 - start raising HOB by 10 deg/hr starting tomorrow AM # 0700 - pain control, oral dilaudid and klonopin started (recommended by her outpatient pain doc Dr. Lopez) - maintain coronel due to immobility, dc once OOB tomorrow - dressing change - IV abx per ID - Pt c/o flushing/sweating, this is improving. -Call NS with any issues Subjective: Pt resting in bed, states sweating improving. Eager to get OOB tomorrow. Objective: AAOx3 NAD VSS MAEx4 Motor 5/ BLE +LT Urinary Catheter in Place: Yes Urinary Catheter Indication: Surgical Requirement Neurosurgery Physical Exam - Vitals, I&O, Labs I and O 01/09/17 01/10/17 01/11/17 05:59 05:59 05:59 Intake Total 6972 840 Output Total 8650 5325 2500 Balance -8132 -5961 -2500 Intake: Oral (ml) 5250 IV Intake (ml) 1197 IV Infused (ml) 525 840 NS W/ 20 KCl/L 1,000 ml @ 210 600 100 mls/hr IV CONT [facility] Rx#:[id number] Nafcillin Sodium 2 gm In 315 240 D5w 100 ml @ 100 mls/hr IV Q4H [facility] Rx#:[id number] Output: Urine (ml) 8650 5325 2500 Catheter 8650 5325 2500 Other: Output Comment Catheter bed portillo Number of Voids Catheter 1 Number of Stools Bedpan 1 Catheter 1 Toilet 1 Microbiology 01/06/17 12:55 Gram Stain - Final Abdomen - Eswab 01/06/17 12:55 Gram Stain - Final Back - Eswab 01/06/17 12:55 Gram Stain - Final Back - Eswab 01/06/17 12:55 Gram Stain - Final Abdomen - Eswab 01/04/17 14:20 Gram Stain - Final Cerebral Spinal Fluid 01/06/17 12:55 Catheter Tip Culture - Final Catheter Tip Staphylococcus Aureus Vital Signs Temp Pulse Resp BP Pulse Ox 36.6 C 84 16 127/85 H 95 01/10/17 07:41 01/10/17 07:41 01/10/17 07:41 01/10/17 07:41 01/10/17 07:41 Laboratory Results 01/09/17 05:20 01/09/17 05:20 ICD10 Worksheet Patient Problems: Problems Problem Status Onset Back pain Acute Fever Acute Leukocytosis Acute Severe sepsis Acute Fever Acute Headache Acute
--- NOTE | 2017-01-10 15:45 | HOSPPROG ---
Hospitalist Progress Note Assessment/Plan: * MSSA sepsis due to meningitis -IV nafcillin x 2 weeks * Infected intra-thecal pump/spinal stimulator s/p removal -must lay flat for 5 days -start to increase HOB tomorrow per neurosurgery * Acute on chronic back pain with continuous narcotic dependency -PO dilaudid + Klonopin - recommended by her pain specialist * DM II -Januvia * HTN * Left breast lump - op follow-up Subjective: No complaints. Objective: Vital Signs Temp Pulse Resp BP Pulse Ox 36.6 C 84 16 127/85 H 95 01/10/17 07:41 01/10/17 07:41 01/10/17 07:41 01/10/17 07:41 01/10/17 07:41 Microbiology 01/06/17 12:55 Gram Stain - Final Abdomen - Eswab 01/04/17 14:20 Gram Stain - Final Cerebral Spinal Fluid 01/06/17 12:55 Gram Stain - Final Back - Eswab 01/06/17 12:55 Gram Stain - Final Back - Eswab 01/06/17 12:55 Gram Stain - Final Abdomen - Eswab 01/06/17 12:55 Catheter Tip Culture - Final Catheter Tip Staphylococcus Aureus Laboratory Results 01/09/17 05:20 01/09/17 05:20 01/09/17 01/10/17 01/11/17 05:59 05:59 05:59 Intake Total 6972 840 Output Total 8650 5325 2500 Balance -1678 -4485 -2500 PT 13.1 SEC (12.0-15.0) 01/04/17 11:00 INR 1.00 (0.83-1.16) 01/04/17 11:00 - Physical Exam Constitutional: no apparent distress, appears nourished, not in pain Cardiovascular: regular rate and rhythym, no murmur, rub, or gallop Respiratory: no respiratory distress, no rales or rhonchi, clear to auscultation Gastrointestinal: normoactive bowel sounds, soft, non-tender abdomen, no palpable masses Skin: no rashes or abrasions, no fluctuance, no induration Neurologic: AAOx3, sensation intact bilaterally Psychiatric: interacting appropriately, not anxious, not encephalopathic, thought process linear ICD10 Worksheet Patient Problems: Problems Problem Status Onset Back pain Acute Fever Acute Leukocytosis Acute Severe sepsis Acute Fever Acute Headache Acute
[2017-01-10] MEDS ORDERED: LOPERAMIDE HCL 2 MG CAP PO PRN (17:13)
[2017-01-10] MEDS: NORTRIPTYLINE HCL 25 MG CAP PO SCH (21:35)
[2017-01-10] MEDS: ATORVASTATIN CALCIUM 40 MG TAB PO SCH (21:35)
[2017-01-10] MEDS: Meloxicam [Mobic] 15 MG PO SCH (21:36)
[2017-01-10] MEDS: ONDANSETRON DISINTEGRATING 4 MG TAB PO PRN (21:42)
[2017-01-11] MEDS: HYDROmorphONE/DILAUDID 4 MG TAB PO PRN ×3 (01:16→16:22)
[2017-01-11] MEDS: NAFCILLIN SODIUM 2 GM in D5W 100 ML IV SCH ×6 (01:16→21:23)
[2017-01-11 07:49] LABS: ADD DIFF? YES; ADD MORPH? NO; ADD SCAN? NO; ATYPICAL LYMPHOCYTE FLAG 0 (0-99); FRAGMENT RBC FLAG 10 (0-99); HEMATOCRIT 41.1 % (38.0-47.0); HEMOGLOBIN 13.8 g/dL (12.6-16.3); LEFT SHIFT FLG 30 (0-99); LIPEMIA HEMOLYSIS FLAG 80 (0-99); MEAN CELL HEMOGLOBIN 29.6 pg (27.9-34.1); MEAN CELL HEMOGLOBIN CONCENTR. 33.6 g/dL (32.4-36.7); MEAN PLATELET VOLUME 9.2 fL (8.7-11.7); PLATELET CLUMPS FLAG 0 (0-99); PLATELET COUNT 313 10^3/uL (150-400); RED BLOOD CELL COUNT 4.67 10^6/uL (4.18-5.33); RED CELL DISTRIBUTION WIDTH 13.8 % (11.5-15.2)
[2017-01-11 08:14] LABS: ANION GAP 9 mEq/L (8-16); CALCIUM 9.4 mg/dL (8.5-10.4); CARBON DIOXIDE 28 mEq/l (22-31); CHLORIDE 102 mEq/L (97-110); CREATININE 0.7 mg/dL (0.6-1.0); GLOMERULAR FILTRATION RATE > 60; GLUCOSE 110 mg/dL (70-100); POTASSIUM 3.7 mEq/L (3.5-5.2); SODIUM 139 mEq/L (134-144)
[2017-01-11 10:21] LABS: PLATELET ESTIMATE ADEQUATE (ADEQ); POLYCHROMASIA 1+
--- NOTE | 2017-01-11 10:30 | PCMIDPN ---
Assessment/Plan: Assessment: Staph aureus infection of indwelling pain pump-MSSA by culture. Patient is tolerating IV nafcillin without rash or laboratory abnormality to date. Plan to continue this monotherapy. Favor a 4 week course of treatment over a 2 week course of treatment post hardware removal. clinically doing better. Suspect she could be sent home tomorrow. Will try to arrange a 24 hour nafcillin pump. Plan: 1. Continue IV nafcillin. Plan of 4 week course from hardware removal. 2. Follow clinical course. 3. Blood cultures have remained clear. No need for follow-up cultures. 01/11/17 10:29 Subjective: Patient is doing very well. She is now sitting slightly inclined without return of headache or photophobia. Tolerating the nafcillin well. No rash or itching. Objective: Nafcillin # 5 (# 7) Vital Signs Temp Pulse Resp BP Pulse Ox 36.7 C 76 16 130/82 H 97 01/11/17 08:00 01/11/17 08:00 01/11/17 08:00 01/11/17 08:00 01/11/17 08:00 Microbiology 01/06/17 12:55 Gram Stain - Final Abdomen - Eswab 01/04/17 14:20 Gram Stain - Final Cerebral Spinal Fluid Laboratory Results 01/11/17 05:30 01/11/17 05:30 01/10/17 01/11/17 01/12/17 05:59 05:59 05:59 Intake Total 840 200 Output Total 5325 3600 Balance -4485 -3400 - Physical Exam General Appearance: WD/WN, alert, no apparent distress, obese, non-toxic Respiratory: lungs clear, normal breath sounds, No respiratory distress Cardiac/Chest: regular rate, rhythm, No tachycardia Skin: normal color, warm/dry, No rash Neuro/Psych: alert, normal mood/affect, oriented x 3 ICD10 Worksheet Patient Problems: Problems Problem Status Onset Back pain Acute Fever Acute Leukocytosis Acute Severe sepsis Acute Fever Acute Headache Acute
[2017-01-11] MEDS: DIAZEPAM 5 MG TAB PO PRN ×2 (11:41→21:19)
[2017-01-11] MEDS: Canagliflozin [Invokana] 300 MG PO SCH (11:53)
[2017-01-11] MEDS: ENOXAPARIN 40 MG/0.4 ML SYR SC SCH ×2 (11:54→21:22)
[2017-01-11] MEDS: LISINOPRIL/HCTZ 20/12.5MG 1 EA TAB PO SCH (11:54)
[2017-01-11] MEDS: CHOLECALCIFEROL VIT D3 2,000 UNITS TAB/CAP PO SCH (11:54)
[2017-01-11] MEDS: clonazePAM 0.5 MG TAB PO SCH ×3 (11:54→21:19)
[2017-01-11] MEDS: SENNOSIDES/DOCUSATE SODIUM TAB PO SCH ×2 (11:55→21:19)
[2017-01-11] MEDS: PSYLLIUM METAMUCIL 1 PKT PO SCH ×2 (11:55→21:20)
--- NOTE | 2017-01-11 14:44 | HOSPPROG ---
Hospitalist Progress Note Assessment/Plan: * MSSA sepsis due to meningitis -IV nafcillin x 4 weeks -ID arranging home IV nafcillin pump * Infected intra-thecal pump/spinal stimulator s/p removal -s/p lay flat for 5 days -increase mobility per neurosurgery * Acute on chronic back pain with continuous narcotic dependency -PO dilaudid + Klonopin - recommended by her pain specialist * DM II -Januvia * HTN * Left breast lump - op follow-up * Morbid obesity BMI 45 Subjective: No complaints. A little dizzy upon first rising today, but now doing better. Hoping to go home soon. Objective: Vital Signs Temp Pulse Resp BP Pulse Ox 36.7 C 76 16 130/82 H 97 01/11/17 08:00 01/11/17 08:00 01/11/17 08:00 01/11/17 08:00 01/11/17 08:00 Microbiology 01/06/17 12:55 Gram Stain - Final Back - Eswab 01/06/17 12:55 Gram Stain - Final Back - Eswab 01/06/17 12:55 Gram Stain - Final Abdomen - Eswab 01/06/17 12:55 Gram Stain - Final Abdomen - Eswab 01/04/17 14:20 Gram Stain - Final Cerebral Spinal Fluid CSF Culture - Final Staphylococcus Aureus Laboratory Results 01/11/17 05:30 01/11/17 05:30 01/10/17 01/11/17 01/12/17 05:59 05:59 05:59 Intake Total 312 273 2945 Output Total 5325 3600 2750 Balance -4485 -3400 -750 PT 13.1 SEC (12.0-15.0) 01/04/17 11:00 INR 1.00 (0.83-1.16) 01/04/17 11:00 - Physical Exam Constitutional: no apparent distress, appears nourished, not in pain Cardiovascular: regular rate and rhythym, no murmur, rub, or gallop Respiratory: no respiratory distress, no rales or rhonchi, clear to auscultation Gastrointestinal: normoactive bowel sounds, soft, non-tender abdomen, no palpable masses Skin: no rashes or abrasions, no fluctuance, no induration Neurologic: AAOx3, sensation intact bilaterally Psychiatric: interacting appropriately, not anxious, not encephalopathic, thought process linear ICD10 Worksheet Patient Problems: Problems Problem Status Onset Back pain Acute Fever Acute Leukocytosis Acute Severe sepsis Acute Fever Acute Headache Acute
[2017-01-11] MEDS: ONDANSETRON DISINTEGRATING 4 MG TAB PO PRN (21:18)
[2017-01-11] MEDS: NORTRIPTYLINE HCL 25 MG CAP PO SCH (21:19)
[2017-01-11] MEDS: ATORVASTATIN CALCIUM 40 MG TAB PO SCH (21:19)
[2017-01-11] MEDS: Meloxicam [Mobic] 15 MG PO SCH (21:22)
[2017-01-11] MEDS: METHOCARBAMOL 750 MG TAB PO PRN (22:38)
[2017-01-12 00:10] VITALS: PULSE 83
[2017-01-12] MEDS: NAFCILLIN SODIUM 2 GM in D5W 100 ML IV SCH ×4 (00:17→12:09)
[2017-01-12] MEDS: ONDANSETRON DISINTEGRATING 4 MG TAB PO PRN (05:01)
[2017-01-12] MEDS: OXYCODONE/APAP 5/325 TAB PO PRN (05:01)
--- NOTE | 2017-01-12 06:48 | NEUSURGPN ---
Date of Surgery: 01/06/17 Post Op Day: 6 Assessment/Plan: Assessment: 46 yo female s/p removal of IT pump and SCS generator and leads due to infection Plan -neuro stable -rested fine overnight -head of bed flat for 5 days, until 01/11/17 - upright now -pain control, oral dilaudid and klonopin(recommended by her outpatient pain doc Dr. Lopez who will write for this medication) -coronel out -dressing change -IV abx per ID -plan for dc later today if pt cleared by ID/IM -Call NS with any issues Subjective: Awake and alert. NAD. Eating/drinking and voiding. No f/c/n/v/d. No ng/neck/ chest/abd or gu complaints. Objective: AAOx3 NAD VSS MAEx4 Motor 5/5 BLE +LT Neuro Check Frequency: per routine Urinary Catheter in Place: No - Physician Discussed Patient with : Faby Neurosurgery Physical Exam - Vitals, I&O, Labs I and O 01/11/17 01/12/17 01/13/17 05:59 05:59 05:59 Intake Total 200 3280 Output Total 3600 2750 Balance -3400 530 Intake: Oral (ml) 2750 IV Intake (ml) 30 IV Infused (ml) 200 500 Nafcillin Sodium 2 gm In 200 500 D5w 100 ml @ 100 mls/hr IV Q4H [facility] Rx#:[id number] Output: Urine (ml) 3600 2750 Catheter 3600 2750 Other: Number of Voids Toilet 3 Number of Stools Toilet 2 Microbiology 01/06/17 12:55 Gram Stain - Final Back - Eswab 01/06/17 12:55 Gram Stain - Final Abdomen - Eswab 01/06/17 12:55 Gram Stain - Final Back - Eswab 01/06/17 12:55 Gram Stain - Final Abdomen - Eswab 01/04/17 14:20 Gram Stain - Final Cerebral Spinal Fluid CSF Culture - Final Staphylococcus Aureus Vital Signs Temp Pulse Resp BP Pulse Ox 37.0 C 83 16 144/83 H 100 01/12/17 00:00 01/12/17 00:00 01/12/17 00:00 01/12/17 00:00 01/12/17 00:00 Laboratory Results 01/11/17 05:30 01/11/17 05:30 ICD10 Worksheet Patient Problems: Problems Problem Status Onset Back pain Acute Fever Acute Leukocytosis Acute Severe sepsis Acute Fever Acute Headache Acute
[2017-01-12] MEDS: Canagliflozin [Invokana] 300 MG PO SCH (08:28)
[2017-01-12] MEDS: CHOLECALCIFEROL VIT D3 2,000 UNITS TAB/CAP PO SCH (08:29)
[2017-01-12] MEDS: clonazePAM 0.5 MG TAB PO SCH (08:30)
[2017-01-12] MEDS: ENOXAPARIN 40 MG/0.4 ML SYR SC SCH (08:30)
[2017-01-12] MEDS: LISINOPRIL/HCTZ 20/12.5MG 1 EA TAB PO SCH (08:30)
[2017-01-12] MEDS: SENNOSIDES/DOCUSATE SODIUM TAB PO SCH (08:31)
[2017-01-12] MEDS: PSYLLIUM METAMUCIL 1 PKT PO SCH (08:31)
[2017-01-12 08:38] VITALS: O2SAT 98
--- NOTE | 2017-01-12 10:17 | PDIAF ---
- Diagnosis Diagnosis: MSSA Meningitis Code Status: Full Code - Medication Management Discharge Medications: Medications to Continue on Transfer Atorvastatin Calcium [Lipitor 40 mg (*)] 40 mg PO HS 03/19/16 [Last Taken ] Canagliflozin [Invokana] 300 mg PO DAILY 03/19/16 [Last Taken 01/03/17] Lisinopril/Hctz 20/12.5MG [Zestoretic/Prinzide 20/12.5MG (*)] 1 ea PO DAILY [Last Taken 01/04/17] Meloxicam [Mobic 15 mg] 15 mg PO HS 03/19/16 [Last Taken 03/18/16] Ondansetron Odt [Zofran Odt 4 mg (*)] 4 mg PO HS 03/19/16 [Last Taken 01/03/17] sitaGLIPtin PHOSPHATE [Januvia 100 MG (*)] 100 mg PO DAILY 03/19/16 [Last Taken 01/04/17] Methocarbamol [Robaxin 750 mg (*)] 750 mg PO QID PRN #60 tab 03/23/16 [Last Taken Unknown] Acet/Caffeine/Buta Fioricet [Fioricet (*)] 1 each PO TID PRN 01/04/17 [Last Taken 01/03/17] Cholecalciferol Vit D3 [Vitamin D3 2000 units tab (OTC)] 2,000 units PO DAILY [Last Taken Unknown] Nortriptyline HCl [Pamelor 25 mg (*)] 25 mg PO HS 01/04/17 [Last Taken 01/03/17] Pain Pump 1 ea IT CONT 01/04/17 [Last Taken Unknown] Psyllium Husk (with Sugar) [Metamucil Packet] 1 each PO BID 01/04/17 [Last Taken Unknown] Custodial Antibiotics: Nafcillin 12 grams by continous infusion q 24 hours Coordinate Measuring Machine Operator Antibiotic Stop Date: 02/03/17 Discharge Medications: Refer to the Discharge Home Medication list for PRN reason. PICC Care - Routine: Yes - Labs/Radiology CBC Date: 01/15/17 (weekly q Th) CMP Date: 01/15/17 (weekly q Th) Call or Fax Lab and Imaging Results to: Dr. Romeo [phone] - Follow Up Care Current Providers and Referrals: Emanuel Granger DO [Primary Care Provider] - As per Instructions Davion Romeo MD [Medical Doctor] - Brittany Waters MD [Medical Doctor] - 01/22/17 1:00 pm
--- NOTE | 2017-01-12 10:47 | PCMIDPN ---
Assessment/Plan: Assessment/Plan: * Meningitis with CSF leak status due to MSSA status post intrathecal pain pump removal: CSF cultures and device cultures with growth of MSSA. One sample also showing growth of gram-positive rpiya while another shows growth of Staphylococcus hominis. Will continue targeted therapy primarily against MSSA this remains most likely etiology. Discussed with patient risks and benefits of nafcillin including potential for AIN, allergic reactions, and cytopenia. Will have follow-up in our office with Dr. Waters next week. 01/12/17 10:40 Subjective: Feels much better. No significant headache. Objective: Vital Signs Temp Pulse Resp BP Pulse Ox 37.0 C 83 16 134/84 H 98 01/12/17 00:00 01/12/17 08:00 01/12/17 08:00 01/12/17 08:00 01/12/17 08:00 Microbiology 01/06/17 12:55 Gram Stain - Final Back - Eswab 01/06/17 12:55 Gram Stain - Final Abdomen - Eswab 01/06/17 12:55 Gram Stain - Final Back - Eswab 01/06/17 12:55 Gram Stain - Final Abdomen - Eswab 01/04/17 14:20 Gram Stain - Final Cerebral Spinal Fluid CSF Culture - Final Staphylococcus Aureus Laboratory Results 01/11/17 05:30 01/11/17 05:30 01/11/17 01/12/17 01/13/17 05:59 05:59 05:59 Intake Total 200 3280 Output Total 3600 2750 Balance -3400 530 Nafcillin # 6 status post device removal Culture findings reviewed - Physical Exam General Appearance: alert, no apparent distress EENT: No scleral icterus Neck: supple, No meningismus Back: other (Surgical incisions intact without erythema or drainage, nontender) - Line/s RUE PICC Lines: No drainage, No erythema ICD10 Worksheet Patient Problems: Problems Problem Status Onset Back pain Acute Fever Acute Leukocytosis Acute Severe sepsis Acute Fever Acute Headache Acute
[2017-01-12 12:06] VITALS: BP 138/87; TEMP 98.5
[2017-01-12 12:23] LABS: ALBUMIN 3.4 g/dL (3.5-5.0); BILIRUBIN,TOTAL 0.7 mg/dL (0.1-1.4); BILIRUBIN-CONJUGATED 0.7 mg/dL (0.0-0.5); TOTAL PROTEIN 6.4 g/dL (6.3-8.2)
--- NOTE | 2017-01-12 12:23 | PDIAF ---
- Diagnosis Diagnosis: MSSA Meningitis Code Status: Full Code - Medication Management Discharge Medications: Medications to Continue on Transfer Atorvastatin Calcium [Lipitor 40 mg (*)] 40 mg PO HS 03/19/16 [Last Taken ] Canagliflozin [Invokana] 300 mg PO DAILY 03/19/16 [Last Taken 01/03/17] Lisinopril/Hctz 20/12.5MG [Zestoretic/Prinzide 20/12.5MG (*)] 1 ea PO DAILY [Last Taken 01/04/17] Meloxicam [Mobic 15 mg] 15 mg PO HS 03/19/16 [Last Taken 03/18/16] Ondansetron Odt [Zofran Odt 4 mg (*)] 4 mg PO HS 03/19/16 [Last Taken 01/03/17] sitaGLIPtin PHOSPHATE [Januvia 100 MG (*)] 100 mg PO DAILY 03/19/16 [Last Taken 01/04/17] Methocarbamol [Robaxin 750 mg (*)] 750 mg PO QID PRN #60 tab 03/23/16 [Last Taken Unknown] Acet/Caffeine/Buta Fioricet [Fioricet (*)] 1 each PO TID PRN 01/04/17 [Last Taken 01/03/17] Cholecalciferol Vit D3 [Vitamin D3 2000 units tab (OTC)] 2,000 units PO DAILY [Last Taken Unknown] Nortriptyline HCl [Pamelor 25 mg (*)] 25 mg PO HS 01/04/17 [Last Taken 01/03/17] Psyllium Husk (with Sugar) [Metamucil Packet] 1 each PO BID 01/04/17 [Last Taken Unknown] Acetaminophen [Tylenol 325mg (*)] 650 mg PO Q4HRS PRN #0 tab 01/12/17 [Last Taken Unknown] Diazepam [Valium 5 MG (*)] 2.5 - 5 mg PO QID PRN #30 tab 01/12/17 [Last Taken Unknown] HYDROmorphone HCL [Dilaudid 2 mg (*)] 2 - 4 mg PO Q6 PRN #40 tab 01/12/17 [Last Taken Unknown] Nafcillin 2 gm/Dextrose [Nafcillin 2 gm (Premix)] 2 gm IV Q4 #126 bag 01/12/17 [ Last Taken Unknown] Sennosides/Docusate Sodium [Senokot-S] 1 - 2 tab PO BID PRN #60 tab 01/12/17 [ Last Taken Unknown] Tele[employer] Specialist Antibiotics: Nafcillin 12 grams by continous infusion q 24 hours [facility] Antibiotic Stop Date: 02/03/17 Discharge Medications: Refer to the Discharge Home Medication list for PRN reason. PICC Care - Routine: Yes - Orders Services needed: Home Care, Registered Nurse Home Care Face to Face: I certify that this patient was under my care and that I had the required [id number] encounter meeting the encounter requirements on the discharge day. My findings support the fact that the patient is homebound as defined in CMS Chapter 7 Medicare Benefits Manual 30.1.1, The condition of the patient is such that there exists a normal inability to leave home and consequently, leaving home would require a considerable and taxing effort. Diet Recommendation: ADA 2000 consistent carb [place]: Not applicable - Labs/Radiology CBC Date: 01/15/17 (weekly q Th) CMP Date: 01/15/17 (weekly q Th) Call or Fax Lab and Imaging Results to: Dr. Romeo [phone] - Follow Up Care Current Providers and Referrals: Emanuel Granger DO [Primary Care Provider] - As per Instructions Brittany Waters MD [Medical Doctor] - 01/22/17 1:00 pm Davion Romeo MD [Medical Doctor] -
[2017-01-12] MEDS: HYDROmorphONE/DILAUDID 4 MG TAB PO PRN (13:21)
--- NOTE | 2017-01-12 17:38 | PDDCSUM ---
Discharge Summary Discharge Summary: DISCHARGE SUMMARY FOLLOW-UP ITEMS: Outpatient follow-up with Dr. Romeo DATE OF ADMISSION: 01/04/2017 DATE OF DISCHARGE: 01/12/2017 DISCHARGE DIAGNOSES: 1. MSSA sepsis 2. MSSA meningitis 3. Infected intrathecal pump/spinal stimulator 4. Acute on chronic back pain 5. Chronic pain with continuous opiate dependency 6. Morbid obesity with BMI 45 CONSULTATIONS: Neurosurgery, Infectious Disease PROCEDURES / IMAGING: Intrathecal pump/spinal stimulator removal, PICC line insertion, lumbar puncture CHIEF COMPLAINT: Acute back pain, fever SUBJECTIVE: Patient is feeling well at time of discharge, her pain is stable with oral Dilaudid and Valium PHYSICAL EXAM ON DISCHARGE: Systolic blood pressure is 130-140, heart rate 80, afebrile overnight satting well on room air, no murmurs rubs or gallops on cardiac exam, bowel sounds are present abdomen is soft nontender LABS ON DISCHARGE: Creatinine 0.7, white blood count 04083 HOSPITAL COURSE BY PROBLEM: 1. MSSA sepsis. Evidenced by tachycardia, tachypnea, fever, [place] [address], clear source of infection notably MSSA bacteremia, resulting in autonomic dysregulation in the setting of infection. Patient received empiric IV fluids and IV antibiotics. The underlying source was found to be MSSA. Antibiotics were then narrowed to nafcillin. Her leukocytosis stabilized and she was afebrile at time of discharge. 2. MSSA meningitis. Patient's source of infection was meningitis in the setting of an infected device notably an intrathecal pump/spinal stimulator. This was confirmed with lumbar puncture and culture results. Her coverage has been narrowed to nafcillin and she will remain on this for 4 weeks per Infectious Disease. 3. Infected intrathecal pump/spinal stimulator. Patient is status post removal , she had required bed rest post procedure for 5 days given increased risk of hematoma formation. She has increased her activity appropriately under the direction Neurosurgery and she will follow up with them in clinic. 4. Acute on chronic back pain. Patient has been prescribed Dilaudid Klonopin by her outpatient stage setting painter apprentice and this has been adjusted to Dilaudid and Valium given that the Valium seems to provide her with better benefit than the Klonopin. Provided her with a prescription for Dilaudid and Valium and recommend that she follow up with her primary stage setting painter apprentice. 5. Chronic pain with continuous opiate dependency. Continuing on medications as outlined above. 6. Morbid obesity. BMI 45, increase patient's risk for morbidity and/or mortality as well as limited mobility. DISCHARGE MEDICATIONS: Please see official discharge medication reconciliation sheet in chart , Dilaudid to 4 mg as needed, Valium 2.5-5 mg as needed, methicillin continuous bulb infusion, Senokot S to avoid constipation. DISCHARGE INSTRUCTIONS: Please follow up with Infectious Disease as scheduled. TIME SPENT: Greater than 30 minutes were spent on direct patient care, as well as discharge planning and preparation.
== END 2017-01-12 13:35 | disposition home health service (06) | DRG 28 ==
LOC: F2N 15:50
PROVIDERS: ADMIT Internal Medicine; ATTEND Internal Medicine
PROC: 009U4ZX Drainage of Spinal Canal, Percutaneous Endoscopic Approach, Diagnostic (ICD-10-PCS; 2017-01-04)
PROC: B01B1ZZ Fluoroscopy of Spinal Cord using Low Osmolar Contrast (ICD-10-PCS; 2017-01-04)
PROC: 00P Central Nervous System and Cranial Nerves, Removal (ICD-10-PCS; principal; 2017-01-06 07:15)
PROC: 00PV0MZ Removal of Neurostimulator Lead from Spinal Cord, Open Approach (ICD-10-PCS; principal; 2017-01-06 07:15)
DX: T85.738A Infection and inflammatory reaction due to other nervous system device, implant or graft, initial encounter (principal); T85.732A Infection and inflammatory reaction due to implanted electronic neurostimulator of peripheral nerve, electrode (lead), initial encounter; G00.9 Bacterial meningitis, unspecified; A41.01 Sepsis due to Methicillin susceptible Staphylococcus aureus; T81.31XA Disruption of external operation (surgical) wound, not elsewhere classified, initial encounter; G97.0 Cerebrospinal fluid leak from spinal puncture; G89.29 Other chronic pain; F11.20 Opioid dependence, uncomplicated; I10 Essential (primary) hypertension; E11.9 Type 2 diabetes mellitus without complications; E66.01 Morbid (severe) obesity due to excess calories; E78.5 Hyperlipidemia, unspecified; Z68.42 Body mass index [BMI] 45.0-49.9, adult; N83.202 Unspecified ovarian cyst, left side; N63 Unspecified lump in breast; M54.5 Low back pain; M79.605 Pain in left leg; D64.9 Anemia, unspecified; D72.829 Elevated white blood cell count, unspecified; Z79.84 Long term (current) use of oral hypoglycemic drugs; Z96.642 Presence of left artificial hip joint
CPT/HCPCS: 96365; 97161-GP; C1751; J0692; J1100; J1170; J1650; J2001; J2250; J2370; J2405; J2704; J3010; J3370; Q9967

== ENCOUNTER → 2017-04-15 | Outpatient (CLI) | payer BC, OTHER | LOC: FIMAGING 10:34 | PROVIDERS: ATTEND Family Medicine | DX: R92.8 Other abnormal and inconclusive findings on diagnostic imaging of breast (principal) | CPT/HCPCS: G0204 ==

== ENCOUNTER → 2017-11-19 | Outpatient (CLI) | payer OTHER | LOC: FIMAGING 14:11 | PROVIDERS: ATTEND Family Medicine | DX: R92.8 Other abnormal and inconclusive findings on diagnostic imaging of breast (principal) ==

== ENCOUNTER 2018-01-11 12:25 | Emergency (ER) | payer OTHER ==
--- NOTE | 2018-01-11 13:02 | EDPHY ---
H & P Stated Complaint: neck pain Time Seen by Provider: 01/11/18 12:49 - Personal History LMP (Females 10-55): 1-7 Days Ago Current Tetanus/Diphtheria Vaccine: No Current Tetanus Diphtheria and Acellular Pertussis (TDAP): No - Medical/Surgical History Hx Asthma: No Hx Chronic Respiratory Disease: No Hx Diabetes: Yes Hx Cardiac Disease: Yes Hx Renal Disease: No Hx Cirrhosis: No Hx Alcoholism: No Hx HIV/AIDS: No Hx Splenectomy or Spleen Trauma: No Other PMH: htn, DM, hip replacement,spinal stimulator and pain pump, spinal meningitis - Social History Smoking Status: Never smoked Constitutional: Initial Vital Signs Temperature (C) 36.9 C 01/11/18 12:38 Heart Rate 99 01/11/18 12:38 Respiratory Rate 16 01/11/18 12:38 Blood Pressure 124/78 H 01/11/18 12:38 O2 Sat (%) 94 01/11/18 12:38 O2 Delivery Mode Room Air Allergies/Adverse Reactions: doxycycline Allergy (Verified 01/11/18 12:34) fentanyl Allergy (Verified 01/11/18 12:34) pregabalin [From Lyrica] Allergy (Verified 01/11/18 12:34) Home Medications: Medication Instructions Recorded Atorvastatin Calcium [Lipitor 40 40 mg PO HS 03/19/16 mg (*)] Lisinopril/Hctz 20/12.5MG 1 ea PO DAILY 03/19/16 [Zestoretic/Prinzide 20/12.5MG (*)] Meloxicam [Mobic 15 mg] 15 mg PO HS 03/19/16 Ondansetron Odt [Zofran Odt 4 mg 4 mg PO HS 03/19/16 (*)] sitaGLIPtin PHOSPHATE [Januvia 100 100 mg PO DAILY 03/19/16 MG (*)] Methocarbamol [Robaxin 750 mg (*)] 750 mg PO QID PRN #60 tab 03/23/16 Acet/Caffeine/Buta Fioricet 1 each PO TID PRN 01/04/17 [Fioricet (*)] Nortriptyline HCl [Pamelor 25 mg 25 mg PO HS 01/04/17 (*)] Psyllium Husk (with Sugar) 1 each PO BID 01/04/17 [Metamucil Packet] Acetaminophen [Tylenol 325mg (*)] 650 mg PO Q4HRS PRN #0 tab 01/12/17 Sennosides/Docusate Sodium 1 - 2 tab PO BID PRN #60 tab 01/12/17 [Senokot-S] Cephalexin [Keflex (RX)] 500 mg PO TID #30 cap 01/11/18 Hydrocodone-Ibuprofen 10-200 01/11/18 Jardiance 01/11/18 Lidocaine 01/11/18 Medical Decision Making ED Course/Re-evaluation: CHIEF COMPLAINT: "I think I have meningitis again" HISTORY OF PRESENT ILLNESS: 39-year-old female who is frequently wheelchair bound due to a difficult left hip replacement. She has had numerous pain pumps placed in her spine. Couple of years ago she developed meningitis with hardware in place. The hardware was removed and she was treated successfully. Last year approximately the same time last December this patient presented here she also had meningitis and also had a new pain pump and spinal stimulator placed. That hardware was subsequently removed. The only hardware she has left now is her left hip. However, as of yesterday she started developing photophobia, dizziness, headache, stiff neck, no fever, and slight nausea. Says exactly same symptoms she had the prior to times however the differences she had intraspinal foreign bodies at that time and not now. She also states clearly that she did not present with a fever either the 1st 2 times until she was a day or 2 into the process. She denies any immuno compromise state. REVIEW OF SYSTEMS: A 10 point review of systems was performed and is negative with the exception of the elements mentioned in the history of present illness. PHYSICAL EXAM: HR, BP, O2 Sat, RR. Temp noted, in wheelchair secondary to severe left hip and low back pain. General Appearance: Alert, well hydrated, appropriate, and non-toxic appearing. Head: Atraumatic without scalp tenderness or obvious injury Eyes: Pupils equal, round, reactive to light and accommodation, EOMI, no trauma , no injection. Ears: Clear bilaterally, no perforation, normal landmarks Nose: Atraumatic, no rhinorrhea, clear. Throat: There is no erythema or exudates, no lesions, normal tonsils, mucus membranes moist. Neck: Supple, 2+ carotid upstroke, nontender, no lymphadenopathy. Respiratory: No retractions, no distress, no wheezes, and no accessory muscle use. Lungs are clear to auscultation bilaterally. Cardiovascular: Regular rate and rhythm, no murmurs, rubs, or gallops. Bilateral carotid, radial, dorsalis pedis, and posterior tibial pulses intact. Good capillary refill all extremities. Gastrointestinal: Abdomen is soft, nontender, non-distended, no masses, no rebound, no guarding, no peritoneal signs. Musculoskeletal: Normal active ROM of all extremities, atraumatic. Neurological: Alert, appropriate, and interactive. The patient has normal DTRs and non-focal cranial nerves, motor, sensory, and cerebellar exam. Skin: No rashes, good turgor, no nodules on palpation. Past medical history: Meningitis x2, intrathecal spinal pumps, left hip replacement Past surgical history: Left hip replacement intrathecal spinal pumps Family history: Noncontributory Social history: , does not abuse tobacco drugs or alcohol, here with her who has to help her transfer due to pain. DIAGNOSTICS/PROCEDURES/CRITICAL CARE TIME: I will get a lumbar puncture via interventional radiology since this patient has had numerous lower spine procedures and surgeries. DIFFERENTIAL DIAGNOSIS: The differential diagnosis for the patient's headache included but was not limited to subarachnoid hemorrhage, migraine headache, tension headache and infectious causes such as meningitis, pharyngitis and sinusitis, pneumonia, urinary tract infection, viral syndrome, meningitis, and sepsis. MEDICAL DECISION MAKING: This patient has 2 prior episodes of meningitis. Both occurred while she had foreign bodies in her spinal canal. She does not have a foreign body or spinal canal today. Her last presentation was a year ago in all that was removed. She does have a left hip replacement. Although she denies fever she presents in a very similar fashion of the prior 2 episodes. Laboratory studies including blood cultures and urinalysis are pending. Additionally, I have sent the patient down for lumbar puncture via interventional radiology due to her morbid obesity and numerous prior low back procedures 1331: Patient does not meet sepsis criteria. 1600: Patient's CSF is normal, she has a UTI based on UA findings. 1603: Reassessed patient and discussed laboratory findings. I have prescribed her Keflex, she is comfortable with taking this. Return precautions provided; patient is comfortable with this plan. - Data Points Laboratory Results: Laboratory Results 01/11/18 13:10 01/11/18 13:10 05/01/11/18 01/11/18 13:45 13:10 13:10 WBC RBC Hgb Hct MCV MCH MCHC RDW Plt Count MPV Neut % (Auto) Lymph % (Auto) [place] % (Auto) Eos % (Auto) Baso % (Auto) Nucleat RBC Rel Count Absolute Neuts (auto) Absolute Lymphs (auto) Absolute Monos (auto) Absolute Eos (auto) Absolute Basos (auto) Absolute Nucleated RBC Immature Gran % Immature Gran # PT 12.6 SEC SEC (12.0-15.0) INR 0.92 (0.83-1.16) APTT 27.5 SEC SEC (23.0-38.0) VBG Lactic Acid Sodium 141 mEq/L mEq/L (135-145) Potassium 3.6 mEq/L mEq/L (3.3-5.0) Chloride 98 mEq/L mEq/L (97-110) Carbon Dioxide 25 mEq/l mEq/l (22-31) Anion Gap 18 mEq/L H mEq/L (8-16) BUN 15 mg/dL mg/dL (7-23) Creatinine 0.8 mg/dL mg/dL (0.6-1.0) Estimated GFR > 60 Glucose 137 mg/dL H mg/dL (70-100) Calcium 9.9 mg/dL mg/dL (8.5-10.4) Total Bilirubin 0.6 mg/dL mg/dL (0.1-1.4) Urine Color Urine Appearance Urine pH Ur Specific [place] Urine Protein Urine Ketones Urine Blood Urine Nitrate Urine Bilirubin Urine Urobilinogen Ur Leukocyte Esterase Urine RBC Urine WBC Ur Epithelial Cells Urine Bacteria Urine Glucose CSF Tube Number 3 CSF Appearance CLEAR (CLEAR) CSF Color COLORLESS (COLORLESS) CSF Supernatant COLORLESS (COLORLESS) CSF WBC 2 /mm3 /mm3 (0-5) CSF RBC 0 /mm3 /mm3 (0-0) CSF Glucose 75 mg/dL mg/dL (50-75) CSF Total Protein 30 mg/dL mg/dL (12-60) 01/11/18 01/11/18 01/11/18 13:10 13:10 12:55 WBC 9.15 10^3/uL 10^3/uL (3.80-9.50) RBC 5.30 10^6/uL 10^6/uL (4.18-5.33) Hgb 15.2 g/dL g/dL (12.6-16.3) Hct 46.4 % % (38.0-47.0) MCV 87.5 fL fL (81.5-99.8) MCH 28.7 pg pg (27.9-34.1) MCHC 32.8 g/dL g/dL (32.4-36.7) RDW 12.9 % % (11.5-15.2) Plt Count 287 10^3/uL 10^3/uL (150-400) MPV 9.7 fL fL (8.7-11.7) Neut % (Auto) 61.4 % % (39.3-74.2) Lymph % (Auto) 27.2 % % (15.0-45.0) [place] % (Auto) 9.0 % % (4.5-13.0) Eos % (Auto) 1.6 % % (0.6-7.6) Baso % (Auto) 0.5 % % (0.3-1.7) Nucleat RBC Rel Count 0.0 % % (0.0-0.2) Absolute Neuts (auto) 5.61 10^3/uL 10^3/uL (1.70-6.50) Absolute Lymphs (auto) 2.49 10^3/uL 10^3/uL (1.00-3.00) Absolute Monos (auto) 0.82 10^3/uL H 10^3/uL (0.30-0.80) Absolute Eos (auto) 0.15 10^3/uL 10^3/uL (0.03-0.40) Absolute Basos (auto) 0.05 10^3/uL 10^3/uL (0.02-0.10) Absolute Nucleated RBC 0.00 10^3/uL 10^3/uL (0-0.01) Immature Gran % 0.3 % % (0.0-1.1) Immature Gran # 0.03 10^3/uL 10^3/uL (0.00-0.10) PT INR APTT VBG Lactic Acid 2.2 mmol/L H mmol/L (0.7-2.1) Sodium Potassium Chloride Carbon Dioxide Anion Gap BUN Creatinine Estimated GFR Glucose Calcium Total Bilirubin Urine Color PALE YELLOW Urine Appearance CLEAR Urine pH 6.0 (5.0-7.5) Ur Specific [place] 1.012 (1.002-1.030) Urine Protein NEGATIVE (NEGATIVE) Urine Ketones NEGATIVE (NEGATIVE) Urine Blood 1+ H (NEGATIVE) Urine Nitrate NEGATIVE (NEGATIVE) Urine Bilirubin NEGATIVE (NEGATIVE) Urine Urobilinogen NEGATIVE EU EU (0.2-1.0) Ur Leukocyte Esterase TRACE H (NEGATIVE) Urine RBC 1-3 /hpf /hpf (0-3) Urine WBC 5-10 /hpf H /hpf (0-3) Ur Epithelial Cells TRACE /lpf /lpf (NONE-1+) Urine Bacteria TRACE /hpf H /hpf (NONE SEEN) Urine Glucose 3+ H (NEGATIVE) CSF Tube Number CSF Appearance CSF Color CSF Supernatant CSF WBC CSF RBC CSF Glucose CSF Total Protein Microbiology Results: MICROBIOLOGY 01/11/18 13:45 Cerebral Spinal Fluid Gram Stain - Final Medications Given: Discontinued Medications Sodium Chloride (Ns) 1,000 mls @ 0 mls/hr IV ONCE ONE PRN Reason: Wide Open Stop: 01/11/18 15:12 Last Admin: 01/11/18 15:11 Dose: 1,000 mls Departure - Departure Disposition: Home, Routine, Self-Care Clinical Impression: UTI (urinary tract infection) Qualifiers: Urinary tract infection type: site unspecified Hematuria presence: without hematuria Qualified Code(s): N39.0 - Urinary tract infection, site not specified Condition: Good Instructions: Urinary Tract Infection in Women (ED) Additional Instructions: 1. Take Keflex as prescribed. 2. Follow-up with your primary doctor within 72 hours. 3. Return to the Emergency Department for fever, worsening pain, flank pain or failure to improve within 72 hours. 4. It is possible that the bacteria causing your infection is resistant to the antibiotic we've placed you on. We have sent a urine for culture, if this comes back with a resistant bacteria, we will call you at the number you provided to us. Referrals: Emanuel Granger DO [Primary Care Provider] - As per Instructions Prescriptions: Cephalexin [Keflex (RX)] 500 mg PO TID #30 cap
[2018-01-11] MEDS ORDERED: LIDOCAINE 1% 300 MG/30 ML SDV ONE (13:18)
[2018-01-11 13:20] LABS: PLATELET COUNT 287 10^3/uL (150-400)
[2018-01-11 13:30] LABS: INR 0.92 (0.83-1.16); PROTIME(PATIENT) 12.6 SEC (12.0-15.0)
[2018-01-11] MEDS ORDERED: NS 1,000 ML IV ONE (15:11)
[2018-01-11] MEDS ORDERED: CEPHALEXIN 500MG PREPACK#4 BTL TAKEHOME ONE (16:06)
[2018-01-11 16:20] VITALS: BP 129/78
== END 2018-01-11 16:31 | disposition home or self-care (01) ==
DX: N39.0 Urinary tract infection, site not specified (principal); E11.9 Type 2 diabetes mellitus without complications; I10 Essential (primary) hypertension; B96.89 Other specified bacterial agents as the cause of diseases classified elsewhere; E86.9 Volume depletion, unspecified